=== PATIENT | female | born 1950 | race Caucasian/White ===

== ENCOUNTER 2016-08-14 21:30 | Inpatient (IN) | payer OTHER, MEDICAID ==
[~2016-08-14] VITALS: Ht 147.3 cm; Wt 82.4 kg
[~2016-08-14 21:30] MED LIST: CEPH500C PO; FAMO20TA4 PO; FUR80 PO; K20 PO; LACL30 PO; SPIR25TA17 PO
[2016-08-14 21:44] VITALS: BP 135/62; PULSE 103; RESP 18; O2SAT 100
[2016-08-14] MEDS ORDERED: 0.9% Sodium Chloride 1,000 ML IV ONE (22:07)
[2016-08-14] MEDS ORDERED: Ondansetron 2 mg/mL 2 mL Inj IVPUSH PRN (22:10)
[2016-08-14 22:15] LABS: Mean Corpuscular Hemoglobin 34.6 pg (27.0-35.0); Mean Corpuscular Volume 96.2 fL (81-100); Platelet Count 151 bil/L (150-400)
--- NOTE | 2016-08-14 22:20 | ED.REPORT ---
HPI-Abd Pain F 40 and Over Date of Service Aug 14, 2016 ED Provider: Adonay Diaz MD A 65 year old female with a history of alcoholism, cirrhosis with liver failure , hypertension, ascites, and hemorrhoids presents to the ED via EMS with diffuse lower abdominal pain onset one week ago. She also reports ascites, eye watering, rhinorrhea, cough, bleeding hemorrhoids, headache, and subjective fever as well as constipation and diarrhea which have now resolved. She denies nausea. The patient has not been compliant with her medication for a year. Her last alcoholic drink was four days ago. Nursing Notes Stated Complaint: ABDOMINAL PAIN Chief Complaint: Female Abdominal Pain Nursing Notes Reviewed: Yes Allergies: Coded Allergies: codeine (Verified Allergy, Intermediate, ITCHING, 08/14/16) [place] Tree (Unverified Allergy, Unknown, rash, 08/15/16) Tetracyclines (Verified Allergy, Unknown, 08/14/16) mussels (Unverified Allergy, Unknown, heart races, 08/15/16) Scheduled Cephalexin-Expunged Drug, Do Not Renew! (Cephalexin-Expunged Drug, Do Not Renew! ) 500 Mg Capsule 500 MG PO TID FAMOTIDINE-Expunged Drug, Do Not Renew! (Pepcid-Expunged Drug, Do Not Renew!) 20 Mg Tablet 20 MG PO DAILY Furosemide-Expunged Drug, Do Not Renew! (Furosemide-Expunged Drug, Do Not Renew! ) 80 Mg Tablet 40 MG PO BID 1/2 TAB IN AM, 1/2 TAB AT NOON Lactulose-Expunged Drug, Do Not Renew! (Cephalac-Expunged Drug, Do Not Renew!) 20 Gm/30 Ml Syrup 20 GM PO BID Potassium Chl-Expunged Drug, Do Not Renew! (T-XXK-Ajisaevu Drug, Do Not Renew!) 20 Meq Tabsr 40 MEQ PO DAILY TAKE WITH FOOD Spironolactone-Expunged Drug, Do Not Renew! (Spironolactone-Expunged Drug, Do Not Renew!) 25 Mg Tablet 50 MG PO DAILY General Time Seen by : 22:15 Chief Complaint Abdominal pain Hx Obtained From: Patient Arrived By: Ambulance Sudden in Onset?: No Onset Occurred: 1 week ago Symptom Duration: Since onset Location: : Abdomen lower Quality: Painful Severity: Current: Moderate Severity: Maximum: Moderate Associated with: Reports: Constipation, Diarrhea, Fever (Subjective ), Denies: Nausea, Vomiting Pertinent Negative: Relieved by nothing Context Related History: Reports: Abdominal surgery, Alcohol abuse Recent Healthcare: No recent doctor visit Similar Sx Previous: Yes Past Medical History Past Medical History Hx alcoholism Cirrhosis with liver failure Ascites Hypertensive gastropathy Hemorrhoids Past Surgical History Tubal ligation Tonsillectomy Smoking History Unknown if Ever Smoker Social History Drinks alcohol Ambulatory Status Independent Review of Systems + ascites, bleeding hemorrhoids Constitutional: Reports: Fever (Subjective) Respiratory: Reports: Non-productive cough GI: Reports: Abdominal pain, Constipation (Resolved), Diarrhea (Resolved), Denies: Nausea, Vomiting Complete sys rev & neg: except as marked. Eyes: Reports: Discharge bilateral (watering) Allergy / Immune: Reports: Rhinorrhea Neurologic: Reports: Headache Physical Exam Physical Exam Notes: Vital Signs Vital Signs (First) Date Time Temp Pulse Resp B/P Pulse Ox O2 Delivery O2 Flow Rate FiO2 08/14/16 21:44 36.8 103 18 135/62 100 Room Air Initial VS: Reviewed, Vital signs abnormal Neck: Supple, Full range of motion Neurologic: Alert, Oriented, Nonfocal Psychiatric: Mood/affect normal, Behavior normal, Normal thought content General/Constitutional: Awake, Alert Respiratory / Chest: Breath sounds NL, Breath sounds = bilat, No respiratory distress Cardiovascular: Heart rate NL, Regular rhythm, Heart sounds NL Tenderness/Guarding/Rebound: Positive: Tender diffuse, Tender periumbilical ( Worst) Liver tender Head / Eyes: Atraumatic, Normocephalic Conjunctiva / Sclera: Positive: Icteric Skin: Warm, Dry Color / Condition: Positive: Jaundice present Interpretation & Diagnostics Lab Results Interpretation Result Diagram: 08/14/16220508/14/162205 Test 08/14/16 22:06 08/14/16 22:11 White Blood Count 12.7th/mm3 (3.8-10.1) Red Blood Count 3.64mil/mm3 (3.90-5.20) Hemoglobin 12.6g/dL (12.0-15.6) Hematocrit 35.0% (35.0-46.0) Mean Corpuscular Volume 96.2fL (81-100) Mean Corpuscular Hemoglobin 34.6pg (27.0-35.0) Mean Corpuscular Hemoglobin Concent 36.0% (32.0-37.0) Red Cell Distribution Width 15.5% (12.3-15.4) Platelet Count 151bil/L (150-400) Neutrophils (%) (Auto) 68% (40-74) Lymphocytes (%) (Auto) 20% (14-46) Monocytes (%) (Auto) 8% (4-12) Eosinophils (%) (Auto) 1% (0-5) Basophils (%) (Auto) 0% (0-3) Band Neutrophils % 2% (1-5) Metamyelocytes % 1% (0-0) Myelocytes % 1% (0-0) Nucleated Red Blood Cells 1/100 WBC (0-24) Hold Purple Top Tube Received (Received) Hold Blue Top Tube Received (Received) Sodium Level 128mEq/L (134-144) Potassium Level 4.2mEq/L (3.5-5.2) Chloride Level 83mEq/L (97-108) Carbon Dioxide Level 18mmol/L (18-29) Blood Urea Nitrogen 19mg/dL (8-27) Creatinine 0.89mg/dL (0.57-1.00) Estimat Glomerular Filtration Rate 92mL/min (>59) Glucose Level 87mg/dL (60-99) Calcium Level 10.4mg/dL (8.5-10.1) Magnesium Level 1.5mg/dL (1.6-2.6) Total Bilirubin 10.6mg/dL (0.0-1.2) Aspartate Amino Transf (AST/SGOT) 246U/L (0-50) Alanine Aminotransferase (ALT/SGPT) 176U/L (0-32) Alkaline Phosphatase 242U/L (25-165) Ammonia 159ug/dL (18-53) Total Protein 6.8g/dL (6.4-8.4) Albumin 3.3g/dL (3.4-5.0) Lipase 20U/L (13-60) Hold [place] Top Tube Received (Received) Hold Mack Top Tube Received (Received) Alcohol, Quantitative < 10mg/dL (0-10) Prothrombin Time 16.3sec (8.1-12.5) Prothromb Time International Ratio 1.51ratio Lab Results Interpretation: Elevated white blood count, hyponatremia, elevated bilirubin, elevated transaminases, hype hypomagnesemia, elevated ammonia CT Abd / Pelvis Interpretation CONCLUSION: Marked fatty infiltration of the liver. TIPS. Gallstones. 5.5 cm left ovarian cyst. Nonemergent ultrasound is recommended to exclude malignant features Transmitted to ED by Guero Sherwood M.D. at 08/15/2016 AM PST Study type: Abdominal CT IV contrast Interpretation / Wet Read by: Interpret - Radiologist Re-Eval/Medical Decision Med Decision/Clinical Course 65-year-old female with a history of liver failure presents with increasing abdominal pain. There is no definitive cause found. She has multiple lab abnormalities including hyperammonemia. She will be admitted to the hospitalist service for further evaluation and treatment. Source of Hx: Old records Re-Evaluation/Progress : Time of Eval: 00:21 Patient Status: Condition improved Re-Evaluation/Progress Note: Discussed with patient CT and lab results, diagnosis, and plan for admit. Patient agrees with plan for care and all questions were addressed. Consultation #1: Referral / Consult Name: Danie Bagley MD Consulted With: Hospitalist Call Returned at: 00:41 Associate Software Engineer: Will see patient, Agrees with eval, Agrees with plan Note: Will evaluate patient for admission Consultation #2: Referral / Consult Name: Danie Bagley MD Consulted With: Hospitalist Call Returned at: 01:00 Associate Software Engineer: Agrees with eval, Agrees with plan, Accepts admit Counseled Regarding: Diagnosis, Lab results, Need for admission Discharge & Departure Primary Impression: Abdominal pain Abdominal location: generalized Qualified Code: R10.84 - Generalized abdominal pain Additional Impressions: S/P TIPS (transjugular intrahepatic portosystemic shunt) Liver failure Liver failure chronicity: chronic Hepatic coma status: without hepatic coma Qualified Code: K72.10 - Chronic hepatic failure without coma Disposition: ADMITTED TO HOSPITAL Discharge Condition All VS Reviewed: Yes Condition: Stable Referrals: Nita Sawyer MD (PCP) Lucasibestela Attestation Portions of this note were transcribed by Sonal Castañeda. I, Dr. Diaz, personally performed the history, physical exam, and medical decision-making; I reviewed and confirmed the accuracy of the information in the transcribed note. Signed by: Gabriela Alonso, 08/15/2016, 02:27 copies to: Nita Sawyer MD, Howard L MD Aug 14, 2016 22:20 SONAL CASTAÑEDA Aug 14, 2016 22:24
[2016-08-14 22:30] LABS: INR 1.51 ratio
[2016-08-14 22:33] LABS: BASOPHILS % (AUTO) 0 % (0-3); EOSINOPHILS % (AUTO) 1 % (0-5); MONOCYTES % (AUTO) 8 % (4-12); NEUTROPHILS % (AUTO) 68 % (40-74)
[2016-08-14 22:43] LABS: Magnesium 1.5 mg/dL (1.6-2.6)
[2016-08-14] MEDS ORDERED: Magnesium Sulf 2 Gm/50mL Water 2 GM in IV Premix 1 EACH IV ONE (22:50)
[2016-08-14] MEDS ORDERED: Lactulose 10 Gm/15 mL 473 mL Solution PO ONE (22:50)
[2016-08-14] MEDS ORDERED: Lactulose 20 Gm/30 mL 30 mL Syrup PO ONE (23:05)
[2016-08-15 01:27] VITALS: BP 102/49; PULSE 95; RESP 16; O2SAT 97
[2016-08-15] MEDS ORDERED: Alum-Mag Hydrox-Simeth 30 mL Suspension PO PRN (02:00)
[2016-08-15] MEDS ORDERED: Polyethylene Glycol (PEG) 17 Gm Powder PO PRN (02:00)
[2016-08-15] MEDS ORDERED: Ondansetron 2 mg/mL 2 mL Inj IVPUSH PRN (02:00)
[2016-08-15 02:28] VITALS: BP 96/61; PULSE 92; RESP 18; O2SAT 99
--- NOTE | 2016-08-15 03:46 | PCM.HPMED ---
Subjective Date of Service Aug 15, 2016 Primary Provider: Admitting Physician: Danie Bagley MD Primary Care Physician: Nita Sawyer MD Attending Physician: Danie Bagley MD Chief Complaint: Abdominal pain History of Present Illness: Patient is a 65-year-old female with alcoholic induced liver cirrhosis s/p TIPS , hepatic encephalopathy and hypertension presenting with abdominal pain. Patient reports the onset of lower abdominal pain about one week ago. She describes the pain as an intermittent sharp pain that started without any inciting event. She states the pain is worse when sitting upright and has tried ibuprofen without any improvement. Patient states the pain was worse today, which prompted her to summon EMS to be brought to [facility] ED for further evaluation. The patient also endorses daily nausea and emesis in the morning over about the past month. She also reports a dry cough over the same time period. Patient reports being constipated earlier in the week with subsequent diarrhea over the past two days. She also reports bleeding hemorrhoids with reported hematochezia about 2 days ago, which has since resolved. She also reports watery eyes with resulting crusting in the morning. This has been bothering her and is another reason she decided to come to the ED. She had been followed by engagement director, Dr. Mack, in the past and was on furosemide, spironolactone and lactulose for her liver-related issues; however, she reports that she has not been compliant with her medications over about the past six months. She states she is unable to follow up with a agent or engagement director since transportation is an issue. She admits to drinking 3 to 4 vodka shots per week. Her last alcoholic drink was about four days ago. Patient denies history of DTs or hallucinations with alcohol cessation. In the ED, vitals: 36.8, HR 103, RR 18 satting 100% on room air, BP 135/62. Notable labs: Na 128, Cl 83, AST 246, ALT 176, alk phos 292, T bili 10.6, ammonia 159. CT abdomen and pelvis reads marked fatty infiltration of the liver , gallstones and 5.5cm left ovarian cyst. Review of Systems: A comprehensive review of systems was conducted with the patient and found to be negative except as above in the History of Present Illness. Allergies Coded Allergies: codeine (Verified Allergy, Intermediate, ITCHING, 08/14/16) [place] Tree (Unverified Allergy, Unknown, rash, 08/15/16) Tetracyclines (Verified Allergy, Unknown, 08/14/16) mussels (Unverified Allergy, Unknown, heart races, 08/15/16) Home Medications None reported PMH Alcoholic induced liver cirrhosis with ascites s/p TIPS Hepatic encephalopathy Hypertension Alcohol dependence Hemorrhoids . Surgical History Tubal ligation TIPS Family History Mother in her 60s from breast cancer, lung cancer Father in his 70s from bladder cancer, prostate cancer Social History Occupation: Disabled Hx Alcohol Use: Yes (current) Hx Substance Use: No Hx Tobacco Use: Yes (Currently 5 cigarettes daily (In the past up to 1 PPD x 40 years)) Smoking Status: Current Every Day Smoker Living Arrangement: Alone Exam Vital Signs Vital Sign - Last Date Time Temp Pulse Resp B/P Pulse Ox O2 Delivery O2 Flow Rate FiO2 08/15/16 01:27 36.7 95 16 102/49 97 Room Air Intake and Output 08/14/16 08/14/16 08/15/16 Cumulative From/Thru 15:00 23:00 07:00 08/14/16 21:44 - 08/15/16 00:54 Intake Total 1000 ml 1000 ml Balance 1000 ml 1000 ml Intake IV Total 1000 ml 1000 ml Exam General: Patient supine in bed. No acute distress, well-developed, well- nourished, appropriately interactive HEENT: Normocephalic, atraumatic. External ears without defect. Pupils equal, round, and reactive to light and accommodation. Scleral icterus. Oropharynx free of erythema with moist mucosa. No upper teeth. Neck: Supple. No lymphadenopathy or thyromegaly. Cardiovascular: Regular rate and rhythm with no murmurs, rubs, or gallops appreciated Pulmonary: Clear to auscultation bilaterally with no crackles, wheezes, or rhonchi. Normal respiratory effort with no use of accessory muscles. Abdomen: Mild tenderness to palpation inferior to umbilicus. Bowel tones present. Soft, obese, nondistended. Hepatosplenomegaly. Extremities: No clubbing, cyanosis, edema, or lymphadenopathy appreciated. Skin: Telangiectasias on chest and arms. Normal temperature, turgor, and texture ; no rash, ulcers, or subcutaneous nodules appreciated. Neurological: Cranial nerves grossly intact. Psychiatric: Normal mood and affect. Alert and oriented to person, place, and time. Lab and Diagnostics Result Diagram: 08/14/16220508/14/162205 X-Rays, CTs and MRIs CT abdomen and pelvis Exam date: 08/14/2016 Conclusion: Marked fatty infiltration of the liver. TIPS. Gallstones. 5.5 cm left ovarian cyst. Nonemergent ultrasound is recommended to exclude malignant features. Radiologist: Guero Sherwood MD Assessment & Plan Patient is a 65-year-old female with alcoholic induced liver cirrhosis s/p TIPS , hepatic encephalopathy and hypertension admitted for abdominal pain, hyperammonemia, hyponatremia, hyperbilirubinemia and transaminitis. 1. Acute abdominal pain. Present on admission. Active -CT abdomen/pelvis shows marked fatty infiltration of the liver, gallstones, 5.5cm left ovarian cyst, small fat-containing umbilical hernia -Mild tenderness on exam; no tense ascites 2. Alcoholic induced liver cirrhosis s/p TIPS. Present on admission. Active -MELD 26 = 19.6%; Discriminant function score 39. Consider pentoxifylline or steroids barring active infection -Patient has been non-compliant with medications. Formerly on spironolactone, Lasix and lactulose -Jaundice on examination but otherwise compensated without ascites or encephalopathy 3. Hyperammonemia. Unknown acuity. Present on admission. Active -Ammonia 159 -Patient is currently not confused or altered on exam -Prophylaxis with lactulose 4. Transaminitis and elevated alkaline phosphatase. Unknown acuity. Present on admission. Active -AST 246, ALT 176, alk phos 242 -Possibly progression of alcoholic liver disease -Consider acute hepatitis panel -Follow with CMP 5. Hyperbilirubinemia. Unknown acuity. Present on admission -Total bilirubin 10.6 -Possible progression of liver disease or sequela of TIPS -Direct and indirect bilirubin levels pending 6. Acute on chronic hematochezia . Present on admission. Active -In setting of patient with hemorrhoids -Per RN, blood with bowel movement following admit -Possibly from hemorrhoids or varices -Will hold heparin -Hemoglobin 12.6 on admit. Follow hemoglobin and hematocrit 7. Hyponatremia. Unknown acuity. Present on admission. Active -Na 128 -Liver cirrhosis that is fairly compensated - no ascites or encephalopathy -Possibly from volume depletion secondary to current nausea, vomiting and diarrhea -Patient received 1L NS in ED -CMP in AM 8. Mild hypercalcemia. Unknown acuity. Present on admission. Active -Ca 10.4 -Possibly secondary to dehydration from nausea, vomiting and diarrhea -CMP in AM 9. Acute on chronic cough. Present on admission. Active -Lung exam unremarkable -Respiratory virus PCR 10. Intertrigo, chronic. Present on admission. Active -Nystatin powder 11. Alcohol dependence, chronic. Present on admission. Active -Patient continues to consume vodka despite cirrhosis. Discussed alcohol cessation with patient -Currently no signs of withdrawal. Monitor for withdrawal -Consider social work referral Patient Status: Patient is admitted under inpatient status with expected length of stay greater than 2 midnights due to severity of presenting symptoms, risk of adverse event, and complexity of treatment plan. GI Prophylaxis: Not indicated VTE Prophylaxis: Sub-Q Heparin (Unfractionated) Resuscitation Status: CPR: Attempt Resuscitation Attending Statement Patient seen and examined independently, Plan and history discussed and formulated with resident. Agree with the above history and plan. Hubert Storm DO Aug 15, 2016 02:48 Danie Bagley MD Aug 15, 2016 07:14
--- NOTE | 2016-08-15 04:19 | NUR ---
[place] [facility] [place] Patient arrived to room 3023 at 0230. Alert and orientedx4 able to make needs known. denies pain. c/o mild cough. IV SL. RA. admission questions completed. patient has no home medications. bed alarm on for safety, patient reports she has fallen at home. will continue to monitor.
[2016-08-15 04:43] LABS: COLOR,URINE ORANGE (YELLOW)
[2016-08-15 04:44] LABS: APPEARANCE,URINE CLOUDY (CLEAR,HAZY); ICTOTEST,URINE POSITIVE (Negative); OCCULT BLOOD,URINE MODERATE (NEGATIVE)
[2016-08-15 05:04] VITALS: BP 106/67; PULSE 93; RESP 18; O2SAT 98
[2016-08-15 06:50] LABS: Mean Corpuscular Hemoglobin 34.7 pg (27.0-35.0); Mean Corpuscular Volume 95.5 fL (81-100); Platelet Count 135 bil/L (150-400)
[2016-08-15 07:22] LABS: Bilirubin, Direct 7.2 mg/dL (0.0-0.3)
[2016-08-15 08:33] LABS: BASOPHILS % (AUTO) 0 % (0-3); EOSINOPHILS % (AUTO) 2 % (0-5); MONOCYTES % (AUTO) 15 % (4-12); NEUTROPHILS % (AUTO) 60 % (40-74)
[2016-08-15] MEDS: Lactulose 20 Gm/30 mL 30 mL Syrup PO SCH ×3 (08:38→20:30)
[2016-08-15] MEDS: Nystatin 100,000 Unit/Gm 15 Gm Powder TOPICAL SCH ×2 (08:39→20:58)
[2016-08-15] MEDS: Heparin 5,000 Unit/mL Inj SUBQ SCH ×2 (08:39→17:03)
--- NOTE | 2016-08-15 08:56 | NUR ---
Social Work: Screening Data: Pt is a 65 y/o female admitted for abdominal pain, liver failure. Pt's PCP is Dr Sawyer, pt's insurance is [facility] [place] blind/disabled, [facility] medicaid sup. Pt readmit score is not listed. EMR reviewed, no d/c planning needs anticipated at this time. PRESSROOM WORKER will continue to follow if needs arise. Assessment: Pt who is independent at baseline. Plan: Pt will d/c home via POV when medically stable. No d/c planning needs anticipated at this time. PRESSROOM WORKER will continue to follow if needs arise. LAILA Melgar
--- NOTE | 2016-08-15 08:59 | DRSVH ---
PROCEDURE: CT ABDOMEN AND PELVIS WITH CONTRAST ([id number]) INDICATIONS: abdominal pain, liver failure TECHNIQUE: After the administration of intravenous contrast, 5 mm thick sections acquired from the diaphragm to the symphysis. 5 mm coronal and sagittal reformats were acquired. For radiation dose reduction, the following was used: automated exposure control, adjustment of mA and/or kV according to patient siz e. COMPARISON: None. FINDINGS: Image quality: Excellent. ABDOMEN: Lung bases: Lung bases are clear. Heart size is normal. Solid organs: Diffuse fatty infiltration the liver is noted. Patient is status post TIPS. Liver has s lightly nodular contour suggesting hepatic cirrhosis; please correlate with clinical and laboratory d arthur. Spleen is within normal limits. Gallbladder contains numerous gallstones. Biliary system is no n dilated. Pancreas enhances normally. No adrenal nodules. Kidneys demonstrate normal size and enh ancement, without hydronephrosis. Peritoneum and bowel: Bowel loops demonstrate normal wall thickness and caliber. No free fluid or a ir. The appendix is normal. Nodes and vessels: No retroperitoneal or mesenteric adenopathy by size criteria. Aorta and inferior vena cava are normal in size. Scattered atherosclerotic calcifications are noted in the abdominal pe lvic vasculature. Miscellaneous: Small fat-containing umbilical hernia. PELVIS: Genitourinary: Bladder wall thickness is normal. Gas is noted in the urinary bladder which could be related to recent catheterization, infection with gas-forming organism or fistulous connection with t he bowel. t A 5.5 x 6.0 cm left adnexal cyst is noted. Miscellaneous: No inguinal hernias or adenopathy. Bones: No suspicious bony lesions. No vertebral body compression fractures. IMPRESSION: 1. Hepatic steatosis. Liver has nodular contour suggestive of hepatic cirrhosis. Please correlate wit h clinical laboratory data. 2. Status post TIPS. 3. Cholelithiasis. 4. 6.0 x 5.5 cm left adnexal cyst. Recommend gynecologic consultation and pelvic ultrasound for furth er evaluation. 5. Gas in the urinary bladder. Differential diagnosis includes recent catheterization, infection and fistulous connection to bowel. Please correlate with clinical history and urinalysis data. Final [facility]. Dictated by: Venecia Lenz MD, PhD on 08/15/2016 at 8:56 Approved by: Venecia Lenz MD, PhD on 08/15/2016 at 8:56
[2016-08-15] MEDS ORDERED: Potassium Chloride 20 mEq SR Tablet PO ONE (14:05)
[2016-08-15 14:21] VITALS: BP 96/64; PULSE 94; RESP 18; O2SAT 98
--- NOTE | 2016-08-15 15:39 | DRSVH ---
PROCEDURE: US ABDOMEN, LIMITED ([id number]) INDICATIONS: abd pain, gallstones on CT TECHNIQUE: Real-time focused scanning was performed of the abdomen, with image documentation. COMPARISON: [facility], CT, CT ABD PELVIS W CON, 08/14/2016, 23:26. [facility], US, ABDOMEN SONOGRAM LIMITED, 12/05/2012, 11:56. FINDINGS: The liver demonstrates steatosis as well but overall cirrhotic appearance. The gallbladder demonstrates mild wall thickening as well as multiple nonmobile areas of increased echogenicity. Comm on bile duct is well common hepatic duct are not well-visualized secondary to patient body habitus. IMPRESSION: 1. Nonmobile areas of increased echogenicity within the gallbladder as well as color wall thickening. Findings are suspicious for adherent stones or sludge with likely superimposed cholecystitis. Dictated by: Sherine Biswas M.D. on 08/15/2016 at 15:36 Approved by: Sherine Biswas M.D. on 08/15/2016 at 15:36
--- NOTE | 2016-08-15 18:28 | NUR ---
Abdominal pain: Patient was given PRN pain med x1 this morning with good relief of patients pain for the entire day and helped her rest most of the day.. Patients abdominal CT was positive for gall stones . Patient is to be NPO after midnight for possible gall bladder surgery in the morning.
--- NOTE | 2016-08-15 18:37 | NUR ---
Chemical Dependency Assessment Stan Valdes 08/17/2016 Current Circumstances: Pt is a 65 year old female who was admitted inpatient status for cirrhosis of the liver and abdominal pain. Pt reported that she drinks ETOH several times a week and a CD assessment was requested. Hx of Use: Pt reported that she has a history of ETOH with a relapse about one year ago. Pt reported that she consumes about four cocktails a week. Pt explained that her friend will come and visit her several times a week and they will make drinks when they hang out. Hx of Treatment: Pt reported that she enrolled in outpatient CD treatment with [facility] about 4.5. Pt reported no other treatment programs. Hx of Withdrawal Symptoms:Pt reported that she usually feels very thirsty when she is experiencing withdrawal. Pt denied any history of seizures, nausea or vomiting. Pt reported no history of DT. Family Hx: Pt reported a family history of substance use on both sides of her family. Hx os sobriety and supports: Pt reported that she enrolled in outpatient CD treatment about 4.5 years ago and was able to remain sober for 3.5 years after she completed the program. Pt reported that she has several friends who would be supportive of any efforts she would make to become sober again. Pt's Perception of Use: Pt indicated that she intended to stop drinking if that was what had caused her current medical issues. Suicide Risk Assessment: Pt reported no SI, HI or A/V H. Recommendations for Referral: Pt declined a list of local outpatient resources. Pt was already enrolled with [facility] and reported that she would re-enroll if needed once she discharged. Natacha Vaughn, CARPET SEWING MACHINE OPERATOR, AAC
[2016-08-15 20:21] VITALS: BP 97/63; PULSE 88; RESP 18; O2SAT 96
--- NOTE | 2016-08-15 21:14 | CONS ---
[address] [address] CONSULTATION REPORT PATIENT: JANE NOLAND : 1950 MR#: [id number] ADMIT: 08/15/2016 JOB ID: [id number] DATE OF SERVICE: 08/15/2016 CHIEF COMPLAINT/IDENTIFICATION: I have been asked by the Medicine Service to consult on this woman regarding a question of cholecystitis. HISTORY OF PRESENT ILLNESS: I was called at 6 this evening with the thought that the patient might have acute cholecystitis. She was admitted to the hospital last night with complaints of abdominal pain that began roughly four days ago. This pain began after she had been drinking alcohol heavily, is not made worse by eating, though she is a bit anorexic. She has had some emesis and it was bloody and coffee-ground. She does have a history of alcoholic cirrhosis and is status post a TIPS procedure for intractable ascites roughly four years ago, according to the patient. She states she has no known history of pancreatitis. She was initially admitted with the diagnosis of acute abdominal pain and after an ultrasound today was felt to have acute cholecystitis. She has not received antibiotics this hospitalization. On questioning, she localizes her pain to the midline, denies radiation to the shoulders. She has not had a recent colonoscopy or EGD. PAST MEDICAL HISTORY: As above. The patient has had a previous history of hepatic encephalopathy, hypertension, hemorrhoids and status post tubal ligation, status post TIPS. She previously was on furosemide, spironolactone and lactulose but has stopped following up with GI and has stopped taking any medications. HOME MEDICATIONS: None. ALLERGIES: 1. CODEINE. 2. TETRACYCLINE. 3. SHELLFISH. SOCIAL HISTORY: Smoker, drinker, lives alone. FAMILY HISTORY: Noncontributory. REVIEW OF SYSTEMS: Per admission history and physical. PHYSICAL EXAMINATION: The patient is seen as she is coming from the bathroom having diarrhea secondary to her lactulose. She is afebrile. Her pulse is in the 80s and 90s. Her blood pressure is mildly low at 97/63. Room air saturation is 96%. Her general appearance is consistent with advanced liver disease with muscle wasting, nondilated caput medusa on her abdomen, though she has no liver flap to my examination. Her abdomen is full to the touch, and I believe that I can palpate a relatively firm liver, but she does not have right upper quadrant tenderness and she does not have a Magallon sign. LABORATORY DATA: Her admission white count was 12.7 and this morning it was 11.7. Hematocrit is 35. Platelet count is 135. She does have a bit of a left shift with 3 bands and 2 myelocytes. Chemistries show her to be hyponatremic with a sodium of 126, hypokalemic with a potassium of 3.4, normal BUN and creatinine. Her LFTs are markedly abnormal with admission bilirubin being 10.6 and having dropped down to 9.2 this morning with the bulk of that being direct bilirubin at 7.2. Transaminases are elevated at 222 and 151 though we do not have a baseline, her alkaline phosphatase is 224, her admission lipase is 20, albumin is 2.7, her INR is 1.51. IMAGING: She has had abdominal CT scan and abdominal ultrasound. I reviewed both the images and the reports and what these demonstrate are nodular liver, status post TIPS, gallstones and a left adnexal cyst. Her ultrasound demonstrates some wall thickening and some stones or sludge in her gallbladder though her gallbladder is not particularly dilated or distended. IMPRESSION AND PLAN: A 65-year-old woman with baseline severe liver disease who is not compliant with followup who has been drinking who developed abdominal pain after drinking. Although she does have gallstones, I am inclined to feel that it is more likely that her abdominal pain is due to some acute alcoholic hepatitis and/or alcoholic gastritis rather than her gallstones. Unfortunately, due to her elevated bilirubin, a HIDA scan would be nondiagnostic and therefore we just have top decide on clinical grounds whether or not this is cholecystitis. As I said, I think she does not have cholecystitis. However, if one wanted to treat her for cholecystitis, given her overall status, I would not want to castaneda her off to the operating room for cholecystectomy. Instead, I would attempt to treat her with antibiotics for cholecystitis and if it did seem that she needed some sort of mechanical intervention, I would consider a cholecystostomy tube. However, as stated, I would not go with a cholecystostomy tube or a lap renetta at this point, and I am not even inclined to recommend treating her with antibiotics. Instead, I would follow her and see if this acute illness resolves with the current treatment. The only compelling reason to treat her with antibiotics is that she is relatively immune-suppressed and she does have a left shift on her mildly elevated white count. General Surgery will continue to follow this patient while she is in the hospital.
[2016-08-16] MEDS: Heparin 5,000 Unit/mL Inj SUBQ SCH ×3 (00:30→16:30)
[2016-08-16 02:09] LABS: Hepatitis A Antibody IgM Negative (Negative); Hepatitis B Core Antibody IgM Negative (Negative)
[2016-08-16 04:45] VITALS: BP 103/58; PULSE 83; RESP 18; O2SAT 97
[2016-08-16 06:48] LABS: Mean Corpuscular Hemoglobin 34.5 pg (27.0-35.0); Mean Corpuscular Volume 94.4 fL (81-100); Platelet Count 131 bil/L (150-400)
[2016-08-16] MEDS ORDERED: SPIR50TA2 PO (07:57)
[2016-08-16] MEDS ORDERED: FURO40TA4 PO (07:58)
[2016-08-16] MEDS ORDERED: FAMO20TA4 PO (07:58)
[2016-08-16 08:11] LABS: BASOPHILS % (AUTO) 1 % (0-3); EOSINOPHILS % (AUTO) 2 % (0-5); MONOCYTES % (AUTO) 16 % (4-12); NEUTROPHILS % (AUTO) 60 % (40-74)
[2016-08-16] MEDS: Lactulose 20 Gm/30 mL 30 mL Syrup PO SCH ×3 (09:34→21:30)
[2016-08-16] MEDS: Nystatin 100,000 Unit/Gm 15 Gm Powder TOPICAL SCH ×2 (09:35→21:35)
--- NOTE | 2016-08-16 10:11 | PCM.PNSURG ---
Subjective Date of Service: Aug 16, 2016 Visit Information: Reason for Visit Abdominal Pain,Liver Failure Surgery/Surgery Date Post-Op Day # Date of Admission: Aug 15, 2016 at 01:09 Hospital Day #2 Subjective: No complaints of pain. Complains of mild nausea but has an appetite and would like to eat. Ate a lunch and breakfast yesterday with no nausea or vomiting. Passing flatus but has not had a bowel movement today. Thinks she may have had a bowel movement yesterday. Ambulatory in the room. Postop General: Other (as above) Gastrointestinal: Good Appetite, Tolerating Oral Feedings, Passing Flatus, Complains of Nausea (minimal) Pain Management: No or Minimal Pain Postop Activity: Ambulating in Room Only Objective Vital Sign- Last 8 Hours Date Time Temp Pulse Resp B/P Pulse Ox O2 Delivery O2 Flow Rate FiO2 08/16/16 04:45 36.4 83 18 103/58 97 Room Air Intake and Output- Last 8 Hour 08/16/16 Cumulative From/Thru 07:00 08/14/16 21:44 - 08/16/16 06:57 Intake Total 400 ml 2700 ml Output Total 650 ml 1300 ml Balance -250 ml 1400 ml Intake Oral 400 ml 1700 ml IV Total 1000 ml Output Urine Total 650 ml 1300 ml # Bowel Movements 4 General: Alert, Cooperative, No Acute Distress, Anicteric Lungs: Clear to Auscultation Heart: Regular Rate/Rhythm Abdomen: Soft, Non-tender (to deep palpation of the right costal margin and mid epigastrium), Non-distended, Protuberant Extremities: Thigh&Calf Soft/Nontender Neuro: Normal Speech Catheters: None Result Diagram: 08/16/16 0610 08/16/16 0610 Assessment & Plan Impression Primary diagnosis: Suspected liver failure, acute on chronic or alcoholic hepatitis. I do not believe this patient has cholecystitis despite presence of cholelithiasis. Other diagnoses: 1. Alcoholic induced liver cirrhosis with ascites s/p TIPS 2. Hepatic encephalopathy 3. Hypertension 4. Alcohol dependence 5. Hemorrhoids 6. Daily cigarette smoker Problems: Plan 1. No surgical intervention is indicated at this time. 2. Surgery will continue to follow. VTE Prophylaxis: Sub-Q Heparin (Unfractionated) Resuscitation Status: CPR: Attempt Resuscitation copies to: Nita Sawyer MD, Fred H PA-C Aug 16, 2016 10:11
[2016-08-16 12:45] VITALS: BP 104/57; PULSE 89; RESP 20; O2SAT 96
--- NOTE | 2016-08-16 13:33 | CONS ---
[address] [address] CONSULTATION REPORT PATIENT: JANE NOLAND : 1950 MR#: [id number] ADMIT: 08/15/2016 JOB ID: [id number] DATE OF SERVICE: 08/16/2016 GASTROENTEROLOGY CONSULTATION: REASON FOR CONSULTATION: Rectal bleeding, alcoholic cirrhosis, and abdominal pain. HISTORY OF PRESENT ILLNESS: A 65-year-old female with history of alcoholic cirrhosis proven by imaging, status post TIPS procedure at the [facility] 4-1/2 years ago, complicated by hepatic encephalopathy, history of hypertension, history of hemorrhoids, who presents for consultation for abdominal pain, rectal bleeding, and cirrhosis. The patient states that her history begins in which she used to drink one pint of vodka per day for the past seven years. Currently for the past one year the patient drinks four shots of vodka per day in which her last use was August 10. The patient complains of epigastric pain or periumbilical pain for the past seven days, 5/10, sharp, nonradiating, intermittent, unknown triggers, and no change with food. The patient also complains of rectal bleeding for the past five days, one time per day, and when she wipes herself with tissue there is bright red blood. The patient denies melena, nausea, vomiting, hematemesis, change in bowel habits, or unintentional weight loss. The patient never had an EGD or colonoscopy in the past and denies family history of colon cancer, inflammatory bowel disease, or celiac disease. The patient has a history of noncompliance with her medications as an outpatient. The patient presents for further evaluation. PAST MEDICAL HISTORY: As stated above. PAST SURGICAL HISTORY: As stated above including the TIPS procedure and tubal ligation. ALLERGIES: CODEINE, , , TETRACYCLINE, AND MUSSELS. HOME MEDICATIONS: None. SOCIAL HISTORY: Heavy history of alcohol use in which she used to drink four shots of vodka per day for the past one year, last use August 10, and prior to that the patient had one pint of vodka per day for seven years. History of five cigarettes per day; used to be one pack per day for 40 years. She is disabled. No history of IV drug use. FAMILY HISTORY: Negative for colon cancer, inflammatory bowel disease, or celiac disease. REVIEW OF SYSTEMS: The patient denies headache, blurred vision, nausea, vomiting, chest pain, shortness of breath. Positive abdominal pain. No skin rash or joint pain. PHYSICAL EXAMINATION: Vital signs upon presentation: Temperature is 36.4, pulse 83, respiratory rate of 18, blood pressure 103/58, satting 97% on room air. General: In no acute distress. Head: No scars. Eyes: Positive bilateral scleral icterus. Throat: Supple. Lungs: Clear to auscultation bilaterally. Cardiovascular: Regular rhythm and rate. Abdomen: Soft, nondistended. Positive right upper quadrant pain and periumbilical pain upon palpation. Normoactive bowel sounds. Extremities: No cyanosis, clubbing, or edema. LABORATORY: Shows a white count 13.1, hemoglobin 11.1, hematocrit 30, MCV 94, platelet count 131. Sodium 123, potassium 4.0, chloride 85, bicarb 20, BUN 17, creatinine 1.0, glucose 60, calcium 9.6. Total bilirubin currently is 8.8, AST 228, ALT 152, alk phos 262, ammonia 159. Total protein 5.4, albumin 2.7. Lipase was normal at 20. IMAGING STUDIES: CT of the abdomen and pelvis with contrast performed August 14, 2016, which shows hepatic steatosis, a nodular liver consistent with hepatic cirrhosis, status post TIPS procedure, gallstones, a 6 x 5.5 cm left adnexal cyst, and gas in the urinary bladder. Abdominal ultrasound performed August 15, 2016, shows areas of increased echogenicity within the gallbladder as well as color wall thickening suspicious for adherent stones or sludge, with likely cecal volvulus cholecystitis. ASSESSMENT AND PLAN: This is a 65-year-old female with history of alcoholic cirrhosis, MELD score upon admission was 20, status post TIPS procedure 4-1/2 years ago at [facility] complicated by hepatic encephalopathy, currently having only one bowel movement per day and not taking lactulose or Xifaxan as an outpatient, history of hypertension, alcohol abuse in which she drinks one pint of vodka per day for the past seven years but currently drinks four shots of vodka per day for the past one year and last drank August 10, who presents here for rectal bleeding, abdominal pain, and management of her cirrhosis. The patient should be started on lactulose and Xifaxan 550 mg by mouth twice a day for her history of encephalopathy. In regards to her rectal bleeding, this mostly sounds like hemorrhoids, but the patient will need an EGD and colonoscopy given her abdominal pain to rule out peptic ulcer disease along with her rectal bleeding. The patient's continued alcohol use is concerning given the fact that now her liver enzymes are elevated most likely due to acute alcoholic hepatitis given the fact that her AST/ALT ratio is 2:1. The patient's Maddrey discriminant function score upon admission was 28, therefore no steroids is indicated. The patient should undergo a substance abuse rehabilitation alcohol program as an outpatient. The patient, in regards to her abdominal pain, it could be peptic ulcer disease from her alcohol use along with possible from her ultrasound showing gallstones, along with or perhaps superimposed acute cholecystitis. I agree with general surgery that the patient should most likely be treated with antibiotics and hold off on anything invasive from a surgical standpoint, especially in the light of her history of cirrhosis due to alcohol. RECOMMENDATIONS: 1. EGD and colonoscopy with anesthesia for her abdominal pain and rectal bleeding. 2. Please start Lactulose and Xifaxan 550 mg by mouth twice a day for her history of encephalopathy- titrate to 3bm/day 3. Alcohol cessation. 4. The patient should be on a multivitamin and folate. 5. Recommendations per General Surgery. 6. Outpatient alcoholic rehabilitation program. The patient is not a liver transplant candidate given her continued use of alcohol. MTDD
[2016-08-16] MEDS ORDERED: PEG/Electrolytes 4,000 mL Solution PO ONE (16:00)
[2016-08-16] MEDS: CeFAZolin Inj 2 GM in IV Premix 1 EACH IV SCH (17:32)
--- NOTE | 2016-08-16 19:29 | PCM.PNMED ---
Subjective Date of Service Aug 16, 2016 Subjective Patient is still c/o abdominal pain, mostly in her right upper quadrant. She has occasional diarrhea, but no vomiting. She states she has one bowel movement yesterday but she does not remember if there was blood in her stool. She tolerates oral intake well. Exam Vital Signs Vital Sign - Last Date Time Temp Pulse Resp B/P Pulse Ox O2 Delivery O2 Flow Rate FiO2 08/16/16 12:45 36.9 89 20 104/57 96 Room Air Intake and Output 08/15/16 08/15/16 08/16/16 Cumulative From/Thru 15:00 23:00 07:00 08/14/16 21:44 - 08/16/16 06:57 Intake Total 900 ml 400 ml 2700 ml Output Total 650 ml 650 ml 1300 ml Balance 250 ml -250 ml 1400 ml Intake Oral 900 ml 400 ml 1700 ml IV Total 1000 ml Output Urine Total 650 ml 650 ml 1300 ml # Bowel Movements 3 4 Exam General: No acute distress, well-developed, well-nourished HEENT: Normocephalic, atraumatic Cardiovascular: Regular rate and rhythm with no murmurs, rubs, or gallops appreciated Pulmonary: Clear to auscultation bilaterally with no crackles, wheezes, or rhonchi. Abdomen: Mild tenderness to palpation RUQ. Bowel tones present. Soft, obese, nondistended. Hepatosplenomegaly. Extremities: No clubbing, cyanosis, edema, or lymphadenopathy appreciated. Skin: Telangiectasias on chest and arms. Psychiatric: Normal mood and affect. Alert and oriented to person, place, and time. Lab and Diagnostics Result Diagram: 08/16/16 0610 08/16/16 0610 X-Rays, CTs and MRIs CT abdomen and pelvis Exam date: 08/14/2016 Conclusion: Marked fatty infiltration of the liver. TIPS. Gallstones. 5.5 cm left ovarian cyst. Nonemergent ultrasound is recommended to exclude malignant features. Radiologist: Guero Sherwood MD PROCEDURE: US ABDOMEN, LIMITED ([id number]) INDICATIONS: abd pain, gallstones on CT FINDINGS: The liver demonstrates steatosis as well but overall cirrhotic appearance. The gallbladder demonstrates mild wall thickening as well as multiple nonmobile areas of increased echogenicity. Common bile duct is well common hepatic duct are not well-visualized secondary to patient body habitus. IMPRESSION: 1. Nonmobile areas of increased echogenicity within the gallbladder as well as color wall thickening. Findings are suspicious for adherent stones or sludge with likely superimposed cholecystitis. Dictated by: Sherine Biswas M.D. on 08/15/2016 at 15:36 Approved by: Sherine Biswas M.D. on 08/15/2016 at 15:36 Assessment & Plan Patient is a 65-year-old female with alcoholic induced liver cirrhosis s/p TIPS , hepatic encephalopathy and hypertension admitted for abdominal pain, hyperammonemia, hyponatremia, hyperbilirubinemia and transaminitis. 1. Acute abdominal pain. Present on admission. Active -CT abdomen/pelvis shows marked fatty infiltration of the liver, gallstones, 5.5cm left ovarian cyst, small fat-containing umbilical hernia -US ABD suggestive of cholecystitis -WBC increase from the day to admission, 13.1 today -Start Ancef 2 g IV q8h -Mild tenderness on exam; no tense ascites; h/o rectal bleeding -EGD and colonoscopy tomorrow morning per Dr. Fatima 2. Alcoholic induced liver cirrhosis s/p TIPS. Present on admission. Active -MELD 26 = 19.6%; Discriminant function score 39. Consider pentoxifylline or steroids barring active infection -Patient has been non-compliant with medications. Formerly on spironolactone, Lasix and lactulose -Jaundice on examination but otherwise compensated without ascites or encephalopathy -Pt is not a liver transplant candidate given her continued use of alcohol 3. Hyperammonemia. Unknown acuity. Present on admission. Active -Ammonia 159 -Patient is currently not confused or altered on exam -Prophylaxis with lactulose and Xifaxam 550 mg - titrate to 3 BM/day 4. Transaminitis and elevated alkaline phosphatase. Unknown acuity. Present on admission. Active -AST 228, ALT 152, alk phos 262 -Possibly progression of alcoholic liver disease -Consider acute hepatitis panel -Follow with CMP 5. Hyperbilirubinemia. Unknown acuity. Present on admission -Total bilirubin 8.8, direct bilirubin 7.2 -Possible progression of liver disease or sequela of TIPS 6. Acute on chronic hematochezia . Present on admission. Active -In setting of patient with hemorrhoids -Will hold heparin -Hemoglobin /hematocrit 11.1/30.4 -Colonoscopy tomorrow 7. Hyponatremia. Unknown acuity. Present on admission. Active -Na 123 -Liver cirrhosis that is fairly compensated - no ascites or encephalopathy -Possibly from volume depletion secondary to current nausea, vomiting and diarrhea 9. Acute on chronic cough. Present on admission. Improving -Lung exam unremarkable -Respiratory virus PCR 10. Intertrigo, chronic. Present on admission. Active -Nystatin powder 11. Alcohol dependence, chronic. Present on admission. Active -Patient continues to consume vodka despite cirrhosis. Discussed alcohol cessation with patient -Currently no signs of withdrawal. Monitor for withdrawal -Start multivitamin and Folate -Outpatient alcoholic rehabilitation program Patient Status: Patient is admitted under inpatient status with expected length of stay greater than 2 midnights due to severity of presenting symptoms, risk of adverse event, and complexity of treatment plan. GI Prophylaxis: Not indicated VTE Prophylaxis: Sub-Q Heparin (Unfractionated) Resuscitation Status: CPR: Attempt Resuscitation Attending Statement The patient was seen and examined together with Dr. Matias on 08/16/2016 and I agree with the history, exam and plan as outlined in the note above. ERIN MATIAS DO Aug 16, 2016 19:29 Tejinder Lerma MD Aug 17, 2016 09:24
--- NOTE | 2016-08-16 19:48 | NUR ---
Colon prep: Patient started Colyt colon prep at 1730, Zofran was given IV for her nausea which was effective to help her drink the prep without vomiting. Patient is scheduled to have a colonoscopy and endoscopy in the morning.
[2016-08-16 20:43] VITALS: BP 95/63; PULSE 86; RESP 20; O2SAT 94
[2016-08-17] VITALS (19 sets, daily range): BP systolic 59–100; BP diastolic 29–71; PULSE 81–119; RESP 14–41; O2SAT 84–97
[2016-08-17] MEDS: CeFAZolin Inj 2 GM in IV Premix 1 EACH IV SCH (00:02)
[2016-08-17] MEDS: Heparin 5,000 Unit/mL Inj SUBQ SCH ×3 (00:07→16:30)
[2016-08-17] MEDS ORDERED: 0.9% Sodium Chloride 500 ML ONE ×2 (06:24→19:37)
--- NOTE | 2016-08-17 06:34 | NUR ---
Hypotension Pt on golytely bowel prep for todays colonoscopy and endoscopy. Visualized blood in stool at least once. Pt tore out IV from arm, new one placed by charge nurse. Manual BP at 80/50 during VS charting. Pt reporting SOB and dizziness. Pt normal BP during stay has been around 94-105/50-60. Placed pt in Trendelenburg position, once pt reported difficulty breathing raised HOB to help with breathing. Pt put on 4L NC. Automatic BP at 74/63. MDs & RT called. Blood glucose at 63. 1/2 D50 Syringe pushed. MD ordered 500 mL NS wide open administered. RT placed non-rebreather mask on with 16L O2. Repeat Blood glucose at 102. MD ordered chest XRAY obtained. O2 titrated to 8L, additional L NS given wide open. MDs in room, monitoring. Will report to next shift.
[2016-08-17] MEDS ORDERED: 0.9% Sodium Chloride 1,000 ML ONE (06:53)
[2016-08-17] MEDS ORDERED: 0.9% Sodium Chloride 1,000 ML IV ONE ×4 (06:55→14:35)
[2016-08-17] MEDS: Lactulose 20 Gm/30 mL 30 mL Syrup PO SCH ×3 (08:30→20:09)
[2016-08-17] MEDS ORDERED: 0.9% Sodium Chloride 1,000 ML IV SCH (10:05)
--- NOTE | 2016-08-17 10:22 | PROG NOTE ---
[address] [address] PROGRESS NOTE PATIENT: JANE NOLAND : 1950 MR#: [id number] ADMIT: 08/15/2016 JOB ID: [id number] DATE: 08/17/2016 SUBJECTIVE: She has been placed on Ancef for possible cholecystitis. This morning she had an episode of hypotension and hypoglycemia. She is scheduled for EGD later on this morning. OBJECTIVE: Her exam is the same. Her labs are pending from this morning, have not been drawn yet. IMPRESSION AND PLAN: The patient continues to have abdominal pain and be fairly ill, though my impression is that this is largely due to her liver failure. Again, I think it is more likely than not that she does not have acute cholecystitis but simply has chronic thickening of the gallbladder wall and gallstones and sludge; however, she is being treated empirically with antibiotics and if it is felt that she does have acute cholecystitis and that she is not responding to IV antibiotics, the next step would be a cholecystostomy tube rather than consideration of surgery. At this time, as stated above, I think it is more likely than not that she does not have acute cholecystitis. General Surgery will continue to follow along.
--- NOTE | 2016-08-17 10:28 | DRSVH ---
PROCEDURE: X-RAY CHEST ONE VIEW, PORTABLE ([id number]) INDICATIONS: SOB TECHNIQUE: One view of the chest was acquired. COMPARISON: [facility], , CHEST 1VW (PORTABLE), 12/04/2012, 13:51. FINDINGS: Surgical changes and devices: None. Lungs and pleura: No pleural effusions or pneumothorax. Patchy consolidative and groundglass opaciti es involving the right upper lower lobes, left lung diffusely. Mediastinum: Mediastinal contours appear normal. Heart size is normal. Bones and chest wall: No suspicious bony lesions. Overlying soft tissues appear unremarkable. IMPRESSION: Diffuse, bilateral ill-defined and groundglass opacities suggesting multifocal pneumonia although cannot exclude superimposed pulmonary edema. Please correlate clinically Dictated by: Haseeb Floyd M.D. on 08/17/2016 at 10:26 Approved by: Haseeb Floyd M.D. on 08/17/2016 at 10:26
[2016-08-17] MEDS ORDERED: Vancomycin Dose per Pharmacist XX SCH (10:35)
[2016-08-17] MEDS ORDERED: Sodium Chloride LOK Flush 10 mL Syringe IVFLUSH PRN ×2 (10:40)
[2016-08-17] MEDS ORDERED: Piperacillin-Tazo 3.375 Gm Inj 3.375 GM in Dextrose 5% Minibag Plus 50 ML IV SCH (11:00)
--- NOTE | 2016-08-17 11:22 | ABG ---
DateTimeAnalyzed 11:17:00 -_ pH ____7.290 - 7.350 7.450 pCO2 ___37.9__ -mmHg 35.0 45.0 pO2 ___67.7__ -mmHg 69.0 116 HCO3- ___17.7__ -mmol/L 22.0 26.0 ABE ___-7.8__ -mmol/L -2.0 2.0 tHb ___10.9__ -g/dL O2Hb ___89.6__ -% COHb ____0.8__ -% MetHb ____0.9__ -% sO2 ___91.2__ -% FIO2 ___60.0__ -% Drawn By jmw - Date/Time Notified____ 11:21:00 -_ Liter_Flow ___10.0__ -L/min Oxygen Device 1 __OXYMASK - Notified Whom _DR JESUS - B 753 -mmHg tO2 ___13.8__ -Vol% Paras test _Positive -
[2016-08-17] MEDS: 0.9% Sodium Chloride 1,000 ML IV SCH ×3 (12:20→16:17)
--- NOTE | 2016-08-17 12:20 | NUR ---
tfr to [facility] pt desated to 79% on 5L NC, called RT and pt was placed on 10L oxymask, Sp02 stayed between 86-92%. Pt was given 1L bolus for low BP on night shift supervisor, BP in morning was 85/52, MD notified, administered second 1L bolus. Pts bp remain systolically in the 80s. IV infiltrated in left hand and new one was placed in left foot. pt was alert and oriented but anxious. Sent to p[facility] where picc line was to be placed. ABGs ran.
--- NOTE | 2016-08-17 12:27 | NUR ---
arrived to [facility] 2009/received report/bolus Pt arrived to [facility] 2009 at 1142 from [facility], received report from Dmitri FARRIS at 1150, IV therapy in room attempting to place PICC line. NS bolus which was started upstairs completed and BP 59/44, notified, order for 3rd NS Bolus, started at 999ml/hr. BP 86/38, 63/29, 82/69. BP set to q5 minutes. Addendum: 08/17/16 at 1231 by LYNETTE CASTRO RN Bp 93/66 Addendum: 08/17/16 at 1319 by LYNETTE CASTRO RN PICC line placed by IV therapy, labs drawn and sent to lab. Pt to be CCU status, report to Maria Esther Wilder RN at 1310 who will resume care of pt. Call light in reach, Care ongoing. Addendum: 08/17/16 at 1319 by LYNETTE CASTRO RN Awaiting antibiotics from pharmacy.
--- NOTE | 2016-08-17 12:59 | PCM.PNMED ---
Subjective Date of Service Aug 17, 2016 Subjective Pt was started on Golytely last night at about 5 pm. This morning pt's BP dropped to 80/50 and she c/o SOB and dizziness. She was put on O2 4L, BP continued to drop to 74/63, blood glucose was 63, she received 1/2 D50 syringe push, NS 500 mg bolus, O2 16L, repeat blood glucose 102. She received two more liters of NS, on 150 mls/hr maintenance IVF now, O2 titrated to 8L. Pt has been transported to ICU. Exam Vital Signs Vital Sign - Last Date Time Temp Pulse Resp B/P Pulse Ox O2 Delivery O2 Flow Rate FiO2 08/17/16 11:56 83 08/17/16 08:43 36.8 20 95/52 90 Nasal Cannula 3.50 Intake and Output 08/16/16 08/16/16 08/17/16 Cumulative From/Thru 15:00 23:00 07:00 08/14/16 21:44 - 08/17/16 06:34 Intake Total 1619 ml 1600 ml 5919 ml Output Total 1300 ml Balance 1619 ml 1600 ml 4619 ml Intake Oral 1619 ml 1600 ml 4919 ml IV Total 1000 ml Output Urine Total 1300 ml # Voids 2 4 6 # Bowel Movements 3 3 10 Exam General: Pale, anxious female in acute distress Neuro: no focal deficit Lab and Diagnostics Result Diagram: 08/16/16 0610 08/16/16 0610 X-Rays, CTs and MRIs CT ABDOMEN AND PELVIS Exam date: 08/14/2016 Conclusion: Marked fatty infiltration of the liver. TIPS. Gallstones. 5.5 cm left ovarian cyst. Nonemergent ultrasound is recommended to exclude malignant features. Radiologist: Guero Sherwood MD PROCEDURE: US ABDOMEN, LIMITED ([id number]) INDICATIONS: abd pain, gallstones on CT FINDINGS: The liver demonstrates steatosis as well but overall cirrhotic appearance. The gallbladder demonstrates mild wall thickening as well as multiple nonmobile areas of increased echogenicity. Common bile duct is well common hepatic duct are not well-visualized secondary to patient body habitus. IMPRESSION: 1. Nonmobile areas of increased echogenicity within the gallbladder as well as color wall thickening. Findings are suspicious for adherent stones or sludge with likely superimposed cholecystitis. Dictated by: Sherine Biswas M.D. on 08/15/2016 at 15:36 Approved by: Sherine Biswas M.D. on 08/15/2016 at 15:36 PROCEDURE: X-RAY CHEST ONE VIEW, PORTABLE ([id number]) INDICATIONS: SOB FINDINGS: Surgical changes and devices: None. Lungs and pleura: No pleural effusions or pneumothorax. Patchy consolidative and groundglass opacities involving the right upper lower lobes, left lung diffusely. Mediastinum: Mediastinal contours appear normal. Heart size is normal. Bones and chest wall: No suspicious bony lesions. Overlying soft tissues appear unremarkable. IMPRESSION: Diffuse, bilateral ill-defined and groundglass opacities suggesting multifocal pneumonia although cannot exclude superimposed pulmonary edema. Please correlate clinically Dictated by: Haseeb Floyd M.D. on 08/17/2016 at 10:26 Approved by: Haseeb Floyd M.D. on 08/17/2016 at 10:26 Additional Diagnostics BLOOD GAS ARTERIAL DateTimeAnalyzed 11:17:00 -_ pH ____7.290 - 7.350 7.450 pCO2 ___37.9__ -mmHg 35.0 45.0 pO2 ___67.7__ -mmHg 69.0 116 HCO3- ___17.7__ -mmol/L 22.0 26.0 ABE ___-7.8__ -mmol/L -2.0 2.0 tHb ___10.9__ -g/dL O2Hb ___89.6__ -% COHb ____0.8__ -% MetHb ____0.9__ -% sO2 ___91.2__ -% FIO2 ___60.0__ -% Drawn By jmw - Date/Time Notified____ 11:21:00 -_ Liter_Flow ___10.0__ -L/min Oxygen Device 1 __OXYMASK - Notified Whom _DR JESUS - B 753 -mmHg tO2 ___13.8__ -Vol% Paras test _Positive - Assessment & Plan Patient is a 65-year-old female with alcoholic induced liver cirrhosis s/p TIPS , hepatic encephalopathy and hypertension admitted for abdominal pain, hyperammonemia, hyponatremia, hyperbilirubinemia and transaminitis. # Severe sepsis, acute, not present on admission -RR 26, BP 74/63, WBC 13.1, liver failure, multifocal pneumonia -Lactic acid q2h x 4, blood cultures, CBC, CMP pending -CXR shows multifocal infiltrates -Pt was bolused with 2.5 liters of NS for her acute hypotension -Start IV Vancomycin and Zosyn -Transfer to ICU -Critical Care has been consulted # Pneumonia, acute, not present on admission -Pt presented with acute on chronic cough -Lung exam unremarkably on admission -CXR 08/17/15 reveals patchy consolidative and ground glass opacities involving the right upper lower lobes, left lung diffusely, suggesting multifocal pneumonia -WBC 13.1 on 08/16/15 -Blood cultures, resp. viral PCR pending -Start IV Vancomycin and Zosyn # Acute Respiratory Failure, Hypoxemic -Continue supplemental O2 to keep SpO2 greater than 92% -Will obtain STAT ABG now -Pulmonology consulted # Acute abdominal pain. Present on admission. Active -CT abdomen/pelvis shows marked fatty infiltration of the liver, gallstones, 5.5cm left ovarian cyst, small fat-containing umbilical hernia -US ABD suggestive of cholecystitis, WBC 13.1 -Mild tenderness on exam; no tense ascites; h/o rectal bleeding -EGD and colonoscopy postponed until patient is stable -Stop Ancef 2 g IV q8h (IV Vanco and Zocyn started this am) # Alcoholic induced liver cirrhosis s/p TIPS. Present on admission. Active -MELD 26 = 19.6%; Discriminant function score 39. Consider pentoxifylline or steroids barring active infection -Patient has been non-compliant with medications. Formerly on spironolactone, Lasix and lactulose -Jaundice on examination but otherwise compensated without ascites or encephalopathy -Pt is not a liver transplant candidate given her continued use of alcohol # Hyperammonemia. Unknown acuity. Present on admission. Active -Ammonia 159 -Patient is currently not confused or altered on exam -Prophylaxis with lactulose and Xifaxam 550 mg - titrate to 3 BM/day #Transaminitis and elevated alkaline phosphatase. Unknown acuity. Present on admission. Active -AST 228, ALT 152, alk phos 262 -Possibly progression of alcoholic liver disease -Consider acute hepatitis panel -Follow with CMP # Hyperbilirubinemia. Unknown acuity. Present on admission -Total bilirubin 8.8, direct bilirubin 7.2 -Possible progression of liver disease or sequela of TIPS # Acute on chronic hematochezia . Present on admission. Active -In setting of patient with hemorrhoids -Will hold heparin -Hemoglobin /hematocrit 11.1/30.4 -Dirk occult blood positive -Colonoscopy postponed -Monitor HGB&HCT q6h x 4 # Hyponatremia. Unknown acuity. Present on admission. Active -Na 123 -Liver cirrhosis that is fairly compensated - no ascites or encephalopathy -Possibly from volume depletion secondary to current nausea, vomiting and diarrhea # Alcohol dependence, chronic. Present on admission. Active -Patient continues to consume vodka despite cirrhosis. Discussed alcohol cessation with patient -Currently no signs of withdrawal. Monitor for withdrawal -Start multivitamin and Folate -Outpatient alcoholic rehabilitation program # Intertrigo, chronic. Present on admission. Active -Nystatin powder Patient Status: Patient is admitted under inpatient status with expected length of stay greater than 2 midnights due to severity of presenting symptoms, risk of adverse event, and complexity of treatment plan. GI Prophylaxis: Not indicated VTE Prophylaxis: Sub-Q Heparin (Unfractionated) VTE Mechanical Devices: Intermittant Pneumatic CD Resuscitation Status: CPR: Attempt Resuscitation Time spent 90 minutes critical care time spent in managing pts acute severe sepsis secondary to her pneumonia. Attending Statement The patient was seen and examined together with Dr. Matias on 08/17/2016 and I agree with the history, exam and plan as outlined in the note above. ERIN MATIAS DO Aug 17, 2016 12:59 Tejinder Lerma MD Aug 17, 2016 14:15
[2016-08-17] MEDS: Nystatin 100,000 Unit/Gm 15 Gm Powder TOPICAL SCH ×2 (13:11→22:10)
[2016-08-17 13:16] LABS: Mean Corpuscular Hemoglobin 34.7 pg (27.0-35.0); Mean Corpuscular Volume 95.5 fL (81-100); Platelet Count 119 bil/L (150-400)
[2016-08-17] MEDS ORDERED: Renal Dosing Per Pharmacist IV SCH (13:25)
--- NOTE | 2016-08-17 13:40 | PCM.ANEPRE ---
Anesthesia Pre-Op Review Reason for Review: Transfer to ICU. Sepsis, hypoxemia, liver failure, and probably pneumonia. Anesthesia Recommendations: Delay until Additional Data Obtain Additional Comments I evaluated this patient in person in the ICU after discussing her worsening condition with Dr. Fatima. Unless her EGD and colonoscopy are truly life-saving procedures, it is prudent to wait until she is more stable (specifically, not hypoxic with impending respiratory failure, improved acidosis, normotensive with appropriate response to sepsis treatment.) Rafy Kevin MD Aug 17, 2016 13:40
[2016-08-17 14:01] LABS: BASOPHILS % (AUTO) 0 % (0-3); EOSINOPHILS % (AUTO) 0 % (0-5); MONOCYTES % (AUTO) 2 % (4-12)
--- NOTE | 2016-08-17 14:01 | CONS ---
[address] [address] CONSULTATION REPORT PATIENT: JANE NOLAND : 1950 MR#: [id number] ADMIT: 08/15/2016 JOB ID: [id number] DATE OF SERVICE: 08/17/2016 PULMONARY CRITICAL CARE PROGRESS NOTE: The patient is a 65-year-old woman with cirrhosis, portal hypertension admitted with a GI bleed seen in consultation for hypotension at the request of Dr. Le. HISTORY OF PRESENT ILLNESS: The patient initially presented on August 15 with lower abdominal pain for one week. She has a history of cirrhosis status post TIPS, hepatic encephalopathy. She was admitted to the hospital on August 15 and has been getting a prep for upper and lower GI endoscopies which were supposed to be done today. Her last hemoglobin yesterday morning was 11 compared to 13 on admission. She did report history of hematochezia versus bleeding hemorrhoids. No hematemesis. Constipation/diarrhea intermittently. She was continuing to drink alcohol despite her cirrhosis. The floor was having difficulty getting IV access so she has not had a hemoglobin checked since yesterday morning. Overnight she has developed hypotension and worsening hypoxia for which she has been moved to the ICU. She is currently on a non-rebreather saturating in the mid 90s. Her blood pressure has been anywhere from 80s-90s and because of difficulty with IV access, she has only received one small bolus. PAST MEDICAL HISTORY: 1. Alcoholic cirrhosis. 2. Portal hypertension. 3. Status post TIPS. 4. Continued alcohol use. 5. Hemorrhoids. FAMILY HISTORY: Mother with breast/lung cancer. SOCIAL HISTORY: Continued alcohol use as well as tobacco use. REVIEW OF SYSTEMS: Methicillin-sensitive Staphylococcus aureus bacteremia. REVIEW OF SYSTEMS: Positive for abdominal pain, shortness of breath, some confusion. Complete review of systems could not be obtained due to her hemodynamic instability and confusion. PHYSICAL EXAMINATION: Vital signs reviewed. Temperature 36.8, pulse 87, respirations 30, BP 93/66, sats 93% on 10 L Oxy Mask. General: Morbidly obese woman, lethargic, somewhat cooperative but not answering all questions. Neck: No cervical lymphadenopathy. Chest: Bilateral crackles heard all over the lung otero. Heart: Regular rate and rhythm. No murmurs. Abdomen: Somewhat distended but nontender. Extremities: No cyanosis, clubbing, edema. Skin: No rashes. LABORATORIES: Reviewed. WBC 13.1, hemoglobin 11.1, platelets 131. INR 1.5 from August 14. It has not been checked since. Chemistry shows sodium 123, potassium 4.0, chloride 85. Creatinine is up slightly to 1.08. AST and ALT are elevated in the 100-200 range and this has been persistent. Alk phos is 262, bilirubin is 8.8, and trending down since admission. Ammonia is 159. Albumin is 2.7. Cultures-urine culture had bacterial contamination and nasal swab from August 15 was negative. IMAGING: Chest x-ray was reviewed and today's x-ray shows bilateral diffuse infiltrates. There was no prior x-ray done during this admission. ASSESSMENT AND RECOMMENDATIONS: 1. Acute hypoxic respiratory failure on 10 L Oxy Mask. 2. Hypotension-due to sepsis versus hypovolemia. 3. Acute blood loss anemia. 4. ? GI bleed/lower. 5. Cirrhosis with portal hypertension status post TIPS. 6. History of hepatic encephalopathy. 7. Acute kidney injury. 8. Hyponatremia. 9. Transaminitis and hyperbilirubinemia. This 65-year-old woman with portal hypertension and alcoholic cirrhosis with ongoing alcohol use, history of TIPS is presenting with a possible GI bleed and now superimposed with hypotension-due to sepsis versus blood loss. We have not had any labs since yesterday morning so I do not know where her hemoglobin is currently but there is no obvious evidence of bleeding. Alternatively she does have pulmonary infiltrates bilaterally which could be due to a new acute infection or pulmonary edema. From an infection standpoint, she did have a respiratory viral PCR done on August 15 but none since. I will repeat it just to make sure she did not catch anything in the hospital. We also do not have a procalcitonin which we added on. We are checking a BNP to see if this is cardiac source hypoxemia. She is currently on face mask/Oxy Mask doing okay and I do not see any respiratory distress that requires her to be on BiPAP but that would be a consideration if she worsens. From a GI bleed standpoint, we are still waiting on a repeat hemoglobin and will transfuse if needed. GI is on standby to see if she can end up going through her EGD and colonoscopy under the circumstances but with her respiratory status being what it is, I would think this is unlikely unless she is having an active bleed. She should be on antibiotics for GI prophylaxis and it looks like she has been started on broad-spectrum antibiotics for sepsis-vancomycin and Zosyn. She has been getting cefazolin alone for the last few days. I actually think we should not do this combination of antibiotics because of mild kidney injury and probably will ask the pharmacist to change it to vancomycin, cefepime to minimize renal injury. She is also getting lactulose and rifaximin which we should continue. I noticed on her abdominal CT that she had an unusual echogenicity in the posterior heart/left atrial region. I spoke to the radiologist who was unable to explain this either. We are going to get an echocardiogram to see if there is any evidence of intracardiac thrombus based on this. Will continue the fluid resuscitation and if we are unable to maintain her BP with that alone, we will start vasopressors. CRITICAL CARE TIME: 45 minutes.
[2016-08-17 14:02] LABS: NEUTROPHILS % (AUTO) 78 % (40-74)
[2016-08-17] MEDS: Norepineph 8,000 mCg/250 mL NS 8,000 MCG in IV Premix 1 EACH IV SCH ×2 (14:02→22:09)
[2016-08-17] MEDS ORDERED: Azithromycin Inj 500 MG in Dextrose 5% w/Vial Mate 250 ML IV SCH (14:20)
[2016-08-17] MEDS ORDERED: Cefepime Inj 2,000 MG in Dextrose 5% Minibag Plus 50 ML IV SCH (14:30)
--- NOTE | 2016-08-17 14:34 | PCM.PNSURG ---
Subjective Date of Service: Aug 17, 2016 Date of Service: Aug 17, 2016 Visit Information: Subjective: events noted this am. sbp 60s, low blood sugar, 10L oxygen facemask required. cxr shows pna. Postop General: Shortness of Breath Objective Vital Sign- Last 8 Hours Date Time Temp Pulse Resp B/P Pulse Ox O2 Delivery O2 Flow Rate FiO2 08/17/16 14:24 86 26 96 Nasal Cannula 50 90 08/17/16 13:20 36.3 99 22 65/53 97 OxyMask 10.00 08/17/16 12:38 87 30 93 OxyMask 10.00 08/17/16 12:31 93/66 08/17/16 12:27 81 82/69 08/17/16 12:23 63/29 08/17/16 12:15 86/38 08/17/16 12:05 59/44 08/17/16 11:56 83 08/17/16 10:50 36.8 83 20 83/51 93 OxyMask 10.00 08/17/16 10:30 36.8 83 20 88/50 90 Nasal Cannula 3.50 08/17/16 08:43 36.8 83 20 95/52 90 Nasal Cannula 3.50 Intake and Output- Last 8 Hour 08/17/16 Cumulative From/Thru 07:00 08/14/16 21:44 - 08/17/16 06:34 Intake Total 1600 ml 5919 ml Output Total 1300 ml Balance 1600 ml 4619 ml Intake Oral 1600 ml 4919 ml IV Total 1000 ml Output Urine Total 1300 ml # Voids 4 6 # Bowel Movements 3 10 General: Oriented X3 Neck: Supple Lungs: Rhonchorus, Wheezes Heart: Exam Unremarkable Abdomen: Benign, Soft, Non-tender, Non-distended, Normoactive bowel tones Extremities: Distal Pulses Palpable Result Diagram: 08/17/16 1250 08/17/16 1304 Assessment & Plan Impression 65-year-old female with history of alcoholic cirrhosis, MELD score upon admission was 20, status post TIPS procedure 4-1/2 years ago at [facility] complicated by hepatic encephalopathy, currently having only one bowel movement per day and not taking lactulose or Xifaxan as an outpatient, history of hypertension, alcohol abuse in which she drinks one pint of vodka per day for the past seven years but currently drinks four shots of vodka per day for the past one year and last drank August 10, who presents here for rectal bleeding, abdominal pain, and management of her cirrhosis. The patient should be started on lactulose and Xifaxan 550 mg by mouth twice a day for her history of encephalopathy. In regards to her rectal bleeding, this mostly sounds like hemorrhoids, but the patient will need an EGD and colonoscopy given her abdominal pain to rule out peptic ulcer disease along with her rectal bleeding. The patient's continued alcohol use is concerning given the fact that now her liver enzymes are elevated most likely due to acute alcoholic hepatitis given the fact that her AST/ALT ratio is 2:1. The patient's Maddrey discriminant function score upon admission was 28, therefore no steroids is indicated. The patient should undergo a substance abuse rehabilitation alcohol program as an outpatient. 08/17/16-events noted this am. sbp 60s, low blood sugar, 10L oxygen facemask required. cxr shows pna. hb 10.1. mild rectal bleed. RECOMMENDATIONS: 1. Hold off EGD and colonoscopy with anesthesia for her abdominal pain and rectal bleeding given hemodynamically unstable and pna. 2. cont Lactulose and Xifaxan 550 mg by mouth twice a day for her history of encephalopathy- titrate to 3bm/day 3. Alcohol cessation. 4. multivitamin and folate. 5. Recommendations per General Surgery. 6. Outpatient alcoholic rehabilitation program. The patient is not a liver transplant candidate given her continued use of alcohol. will cont to follow Problems: VTE Prophylaxis: Sub-Q Heparin (Unfractionated) Resuscitation Status: CPR: Attempt Resuscitation Dmitri Fatima MD Aug 17, 2016 14:34
--- NOTE | 2016-08-17 15:00 | PCM.PHAPRO ---
Progress Vancomycin dosing per Pharmacy: -Indication: severe sepsis, pt presenting with multifocal infiltrates on chest xray -Concurrent antibiotics: Cefepime 2gm iv [id number] and Azithromycin 500mg iv [id number] -65 yo female, serum creatinine 1.08, wbc 11.6, est creatinine clearance~ 40ml/ min -pertinent hx: pt with cirrhosis -transferred to CCU today for hypotension/sepsis -Plan: a loading dose of Vancomycin 1.5gm was given ~ 1330 today Subsequent doses of 1.25gm iv [id number] to be started tomorrow at 1300. Trough level to be drawn prior to 4th dose (08/20 @ 1230) or sooner if creatinine increases. Lynette Mast [facility] Aug 17, 2016 15:00
--- NOTE | 2016-08-17 15:03 | DRSVH ---
PROCEDURE: X-RAY PICC LINE PLACEMENT BY NURSE ([id number]) INDICATIONS: Sepsis COMPARISON: [facility], CT, CT ABD PELVIS W CON, 08/14/2016, 23:26. FINDINGS: PICC was placed by the intravenous therapy team from the left side. Fluoroscopic spot jadyn m demonstrates tip of PICC possibly within a persistent left SVC. IMPRESSION: Status post placement of left PICC line. The tip projects over the left upper mediastinum , possibly within a persistent left-sided SVC although recommend clinical correlation. If clinically indicated, contrast-enhanced chest CT could be performed for definitive assessment. Findings were pe rsonally discussed with Dr. Lerma 1500 hours 08/17/16 Dictated by: Haseeb Floyd M.D. on 08/17/2016 14:27 Approved by: Haseeb Floyd M.D. on 08/17/2016 at 15:01
--- NOTE | 2016-08-17 15:15 | PCM.PNMED ---
Subjective Date of Service Aug 17, 2016 Subjective This patient was admitted for possible rectal bleeding and context of known cirrhosis, portal hypertension and a history of TIPS procedure with a meld score of 20. She had been prepared for EGD and colonoscopy today. She became acutely hypotensive without evidence of renewed rectal bleeding this morning and then hypoxic. The patient's chest x-ray reveals bilateral pulmonary infiltrates. She has had no recent rhinorrhea or sore throat or cough. No fevers or chills. The patient has a right arm PICC which is not functioning correctly. A CT scan indicated 3 artifacts in the atrium of the left side of the heart. An echo is ordered and pending. The patient is currently being supported on nasal high flow oxygen. She is coherent. We had a discussion regarding level of care. She seems to understand the condition of her body and lack of reserve. She declines intubation and mechanical ventilation if she fails to be supported by high flow oxygen or BiPAP. She also agrees to DO NOT RESUSCITATE in the event of a cardiac arrest. Patient had received 4 L of crystalloid solution this morning is now on #5 with a systolic blood pressure of 75. Exam Vital Signs Vital Sign - Last Date Time Temp Pulse Resp B/P Pulse Ox O2 Delivery O2 Flow Rate FiO2 08/17/16 14:24 86 26 96 Nasal Cannula 50 90 08/17/16 13:20 36.3 65/53 Intake and Output 08/16/16 08/16/16 08/17/16 Cumulative From/Thru 15:00 23:00 07:00 08/14/16 21:44 - 08/17/16 06:34 Intake Total 1619 ml 1600 ml 5919 ml Output Total 1300 ml Balance 1619 ml 1600 ml 4619 ml Intake Oral 1619 ml 1600 ml 4919 ml IV Total 1000 ml Output Urine Total 1300 ml # Voids 2 4 6 # Bowel Movements 3 3 10 Exam Alert oriented 3, chronically ill. Jaundiced. Fluids speech. Icteric sclerae. Symmetric pupils. No facial droop. Neck supple. Lungs with diminished breath sounds in the bases get air movement and no wheezing. Heart is regular without murmur gallop or rub. Abdomen somewhat distended nontender. Extremities are relatively free of edema There is muscle atrophy. IVs and Medications Medications Reviewed: Medications were reviewed in detail Lab and Diagnostics Result Diagram: 08/17/16 1250 08/17/16 1304 X-Rays, CTs and MRIs CT ABDOMEN AND PELVIS Exam date: 08/14/2016 Conclusion: Marked fatty infiltration of the liver. TIPS. Gallstones. 5.5 cm left ovarian cyst. Nonemergent ultrasound is recommended to exclude malignant features. Radiologist: Guero Sherwood MD PROCEDURE: US ABDOMEN, LIMITED ([id number]) INDICATIONS: abd pain, gallstones on CT FINDINGS: The liver demonstrates steatosis as well but overall cirrhotic appearance. The gallbladder demonstrates mild wall thickening as well as multiple nonmobile areas of increased echogenicity. Common bile duct is well common hepatic duct are not well-visualized secondary to patient body habitus. IMPRESSION: 1. Nonmobile areas of increased echogenicity within the gallbladder as well as color wall thickening. Findings are suspicious for adherent stones or sludge with likely superimposed cholecystitis. Dictated by: Sherine Biswas M.D. on 08/15/2016 at 15:36 Approved by: Sherine Biswas M.D. on 08/15/2016 at 15:36 PROCEDURE: X-RAY CHEST ONE VIEW, PORTABLE ([id number]) INDICATIONS: SOB FINDINGS: Surgical changes and devices: None. Lungs and pleura: No pleural effusions or pneumothorax. Patchy consolidative and groundglass opacities involving the right upper lower lobes, left lung diffusely. Mediastinum: Mediastinal contours appear normal. Heart size is normal. Bones and chest wall: No suspicious bony lesions. Overlying soft tissues appear unremarkable. IMPRESSION: Diffuse, bilateral ill-defined and groundglass opacities suggesting multifocal pneumonia although cannot exclude superimposed pulmonary edema. Please correlate clinically Dictated by: Haseeb Floyd M.D. on 08/17/2016 at 10:26 Approved by: Haseeb Floyd M.D. on 08/17/2016 at 10:26 Additional Diagnostics BLOOD GAS ARTERIAL DateTimeAnalyzed 11:17:00 -_ pH ____7.290 - 7.350 7.450 pCO2 ___37.9__ -mmHg 35.0 45.0 pO2 ___67.7__ -mmHg 69.0 116 HCO3- ___17.7__ -mmol/L 22.0 26.0 ABE ___-7.8__ -mmol/L -2.0 2.0 tHb ___10.9__ -g/dL O2Hb ___89.6__ -% COHb ____0.8__ -% MetHb ____0.9__ -% sO2 ___91.2__ -% FIO2 ___60.0__ -% Drawn By jmw - Date/Time Notified____ 11:21:00 -_ Liter_Flow ___10.0__ -L/min Oxygen Device 1 __OXYMASK - Notified Whom _DR JESUS - B 753 -mmHg tO2 ___13.8__ -Vol% Paras test _Positive - Assessment & Plan Patient is a 65-year-old female with alcoholic induced liver cirrhosis s/p TIPS , hepatic encephalopathy and hypertension admitted for abdominal pain, hyperammonemia, hyponatremia, hyperbilirubinemia and transaminitis. 1. Acute hypoxic respiratory failure. The patient will be supported oxygen up to and including BiPAP. She will also be treated for possible pneumonia as evidenced on x-ray. She is DNR/DNI. 2. Pneumonia, possible aspiration. The patient was placed on broad-spectrum antibiotic pulmonary no change status for now. We will obtain cultures and sputum data. Support as outlined above 3. Possible rectal bleeding. POA. The patient has hematocrit of 27 at this time we will follow her hematocrit and clinical status closely. Blood product support as needed. We will check ProTime. 4. Probable hypovolemia. We will aggressively fluid resuscitate this patient who is hypotensive. We will reserve pressors for evidence of persistent hypotension in spite of adequate fluid resuscitation. 5. Hyponatremia. This likely is multifactorial both chronic and also has a manifestation of her acute Depletion. Crystalloid resuscitation and follow 6. Known alcohol-induced cirrhosis with TIPS and varices. Mild score of 20. 7. Alcoholism. Follow clinically. CIWA as indicated. 8. Acute hepatic dysfunction, alcohol-induced hepatitis. Support clinically. 9. Acute kidney injury. Likely manifestation of sepsis and hypovolemia. Fluid resuscitate and follow renal indices closely. Avoid nephrotoxins. 8. She was to resuscitate, confirmed today. She is also DO NOT INTUBATE. Pain Evaluation: Adequate Pain Control GI Prophylaxis: Not indicated VTE Prophylaxis: Sub-Q Heparin (Unfractionated) VTE Mechanical Devices: Intermittant Pneumatic CD Resuscitation Status: CPR: Attempt Resuscitation Time spent 40 minutes Paras Low MD Aug 17, 2016 15:15
--- NOTE | 2016-08-17 15:16 | PCM.PHAPRO ---
Progress Addendum: -creatinine has increased to 1.76 this afternoon. will need to check in am tomorrow prior to any administration of Vancomycin. Lynette Mast [facility] Aug 17, 2016 15:16
--- NOTE | 2016-08-17 15:19 | DRSVH ---
PROCEDURE: X-RAY CHEST ONE VIEW, PORTABLE ([id number]) INDICATIONS: PICC LINE ISSUE TECHNIQUE: One view of the chest was acquired. COMPARISON: [facility], CR, XR PICC LINE PLACE BY NURSE, 08/17/2016, 12:14. [facility], CR, XR CHEST 1VW (PORTABLE), 08/17/2016, 6:40. FINDINGS: Surgical changes and devices: Unchanged position and appearance of the left PICC line. Lungs and pleura: No pleural effusions or pneumothorax. Bilateral multifocal consolidations are unch anged. Mediastinum: Mediastinal contours appear normal. Heart size is normal. Bones and chest wall: No suspicious bony lesions. Overlying soft tissues appear unremarkable. IMPRESSION: Left PICC line, with an appearance that suggests placement within a persistent left SVC ( anatomic variant) recommend clinical correlation. If definitive assessment is necessary, a contrast-e nhanced chest CT could be performed. Dictated by: Haseeb Floyd M.D. on 08/17/2016 at 15:17 Approved by: Haseeb Floyd M.D. on 08/17/2016 at 15:17
[2016-08-17] MEDS ORDERED: Vasopressin Inj 20 UNIT in 0.9% Sodium Chloride 100 ML IV SCH (15:54)
[2016-08-17] MEDS ORDERED: Flumazenil 0.1 mg/mL 5 mL Inj IV ONE (16:48)
[2016-08-17 17:03] LABS: INR 2.09 ratio
--- NOTE | 2016-08-17 17:25 | DRSVH ---
[facility] [address] [facility] [place] [address] Echocardiogram Report Name: JANE NOLAND te: 08/17/2016 Height: 58 in Hospital Exam Location: [facility] Weight: 182 lb Gender: Female BSA: 1.7 m2 : 1950 Age: 65 yrs BP: 87/51 mmHg Reason For Study: HYPOTENSION, RA THROMBUS BY CT Performed By: Nikita Welsh Referring Physician: AMANDA MARROQUIN Interpretation Summary Patient had difficulty remaining still for exam. The left atrium grossly appears normal in size. Right atrial size is normal. No RA thrombus was appreciated on today's study. The left ventricle is normal in size, wall thickness, and systolic function without any focal wall motion abnormalities. The ejection fraction is estimated to be 70-75%. The right ventricle is normal in size, thickness and function. Pulmonary artery pressures cannot be estimated because of the lack of a measurable TR jet velocity. There is no significant valvular heart disease. Procedure: A two-dimensional transthoracic echocardiogram with color flow and Doppler was performed. The study quality was technically difficult. There is no prior echocardiogram noted for this patient. The patient was in normal sinus rhythm during the exam. Left Ventricle: The left ventricle is normal in size, wall thickness, and systolic function without any focal wall motion abnormalities. The ejection fraction is estimated to be 70-75%. Diastolic function could not be accurately assessed due to tachycardia. Right Ventricle: The right ventricle is normal in size, thickness and function. Atria: The left atrium grossly appears normal in size. Right atrial size is normal. There is no Doppler evidence for an atrial septal defect. Mitral Valve: The mitral valve is grossly normal. There is trace mitral regurgitation. Aortic Valve: The aortic valve is not well visualized. The aortic valve opens well. No aortic regurgitation is present. Tricuspid Valve: The tricuspid valve is not well visualized, but is grossly normal. Pulmonary artery pressures cannot be estimated because of the lack of a measurable TR jet velocity. Pulmonic Valve: The pulmonic valve is not well visualized. There is no significant valvular heart disease. Great Vessels: The aortic root is normal size. The ascending aorta is at the upper limits of normal in size. The pulmonary artery is not well visualized, but is probably normal size. The inferior vena cava was not well visualized. Pericardium/ Pleura There is an anterior echo-free space consistent with a fat pad. There is no pericardial effusion. There is no pleural effusion. MMode/2D Measurements & Calculations LVIDd: 4.8 cm RA long axis LVOT diam LV flores. diameter/BSA LVIDs: 2.6 cm (cm/m^2): 2.7 FS: 46.5 % RA area Ao root diam IVSd: 0.95 cm LVPWd: 0.77 cm : 12.4 cm asc Aorta RA vol: 29.7 ml Diam: 3.4 cm RA : 17.0 mm2 LV sys. diameter/BSA (cm/m^2): 1.5 Doppler Measurements & Calculations Ao V2 max MV E max tao MV E/A: 1.2 PA V2 max : 202.6 cm/sec : 115.0 cm/sec : 109.9 cm/sec Ao max PG MV A max tao PA mean PG : 16.4 mmHg : 97.2 cm/sec : 2.8 mmHg Ao mean PG : 8.2 mmHg MV dec time Ao V2 mean PA V2 mean : 0.21 sec : 133.3 cm/sec : 80.4 cm/sec Ao V2 VTI: 35.7 cm PA pr(Accel) : 18.3 mmHg Reading Physician:AURELIA
--- NOTE | 2016-08-17 18:37 | NUR ---
Cardiac/Resp/Neuro: Pt hypotensive, received 5L NS in 1L boluses, Levophed and Vasopressin infusing, see CCU flowsheet for details, currently normotensive. Did have brief episode of Afib, asymptomatic. [place] [facility] [place], now on 100% FiO2 with high flow canula. Severe agitation/restlessness/thrashing in bed, MD notified, given 1mg Ativan. Pt appeared to be calmer, but then was found to have removed canula and was unresponsive/hypotensive. Replaced canula, increased O2, multiple sternal rubs, VS stabilized, restraints placed, MD at bedside during event. Currently in restraints, moves independently but not purposefully, no attempt to follow commands. IV antibiotics infusing. Care ongoing.
[2016-08-17] MEDS ORDERED: Furosemide 10 mg/mL 4 mL Inj ONE (19:30)
[2016-08-17] MEDS ORDERED: Furosemide 10 mg/mL 4 mL Inj IVPUSH ONE (19:40)
[2016-08-17] MEDS ORDERED: Potassium Chloride 40 mEq/100 mL Premix IV ONE (19:47)
--- NOTE | 2016-08-17 20:04 | PCM.PNMED ---
Subjective Date of Service Aug 17, 2016 Subjective Asked to see pt re increased hypoxia and respiratory distress. Pt curently on high flow O2 supplementation with O2 sats in the mid 70s. pt has an extreme amount of frothy sputum in mouth and suctioned. Pt also hypotensive to SBP high 70s on levophed. CVP is approximately 15. Exam Vital Signs Vital Sign - Last Date Time Temp Pulse Resp B/P Pulse Ox O2 Delivery O2 Flow Rate FiO2 08/17/16 17:00 14 93 Nasal Cannula 60 100 08/17/16 16:30 119 93/58 08/17/16 13:20 36.3 Intake and Output 08/16/16 08/16/16 08/17/16 Cumulative From/Thru 15:00 23:00 07:00 08/14/16 21:44 - 08/17/16 06:34 Intake Total 1619 ml 1600 ml 5919 ml Output Total 1300 ml Balance 1619 ml 1600 ml 4619 ml Intake Oral 1619 ml 1600 ml 4919 ml IV Total 1000 ml Output Urine Total 1300 ml # Voids 2 4 6 # Bowel Movements 3 3 10 Exam Mouth:spontaneous frothy clear sputum in mouth Chest:Diffuse rhonchi COR: RRR S1,S2 distant s murmur heard. Abd: soft,NT Ext:No pedal edema IVs and Medications Medications Reviewed: Medications were reviewed in detail Lab and Diagnostics Intake and Output 08/16/16 08/16/16 08/17/16 Cumulative From/Thru 15:00 23:00 07:00 08/14/16 21:44 - 08/17/16 06:34 Intake Total 1619 ml 1600 ml 5919 ml Output Total 1300 ml Balance 1619 ml 1600 ml 4619 ml Intake Oral 1619 ml 1600 ml 4919 ml IV Total 1000 ml Output Urine Total 1300 ml # Voids 2 4 6 # Bowel Movements 3 3 10 Laboratory Tests 72 Hours Test 08/14/16 22:06 08/14/16 22:11 08/15/16 01:15 08/15/16 06:15 White Blood Count 12.7th/mm3 (3.8-10.1) 11.1th/mm3 (3.8-10.1) Red Blood Count 3.64mil/mm3 (3.90-5.20) 3.37mil/mm3 (3.90-5.20) Hemoglobin 12.6g/dL (12.0-15.6) 11.7g/dL (12.0-15.6) Hematocrit 35.0% (35.0-46.0) 32.2% (35.0-46.0) Mean Corpuscular Volume 96.2fL (81-100) 95.5fL (81-100) Mean Corpuscular Hemoglobin 34.6pg (27.0-35.0) 34.7pg (27.0-35.0) Mean Corpuscular Hemoglobin Concent 36.0% (32.0-37.0) 36.3% (32.0-37.0) Red Cell Distribution Width 15.5% (12.3-15.4) 15.6% (12.3-15.4) Platelet Count 151bil/L (150-400) 135bil/L (150-400) Neutrophils (%) (Auto) 68% (40-74) 60% (40-74) Lymphocytes (%) (Auto) 20% (14-46) 18% (14-46) Monocytes (%) (Auto) 8% (4-12) 15% (4-12) Eosinophils (%) (Auto) 1% (0-5) 2% (0-5) Basophils (%) (Auto) 0% (0-3) 0% (0-3) Band Neutrophils % 2% (1-5) 3% (1-5) Metamyelocytes % 1% (0-0) Myelocytes % 1% (0-0) 2% (0-0) Nucleated Red Blood Cells 1/100 WBC (0-24) Hold Purple Top Tube Received (Received) Hold Blue Top Tube Received (Received) Sodium Level 128mEq/L (134-144) 126mEq/L (134-144) Potassium Level 4.2mEq/L (3.5-5.2) 3.4mEq/L (3.5-5.2) Chloride Level 83mEq/L (97-108) 87mEq/L (97-108) Carbon Dioxide Level 18mmol/L (18-29) 21mmol/L (18-29) Blood Urea Nitrogen 19mg/dL (8-27) 17mg/dL (8-27) Creatinine 0.89mg/dL (0.57-1.00) 0.92mg/dL (0.57-1.00) Estimat Glomerular Filtration Rate 92mL/min (>59) 88mL/min (>59) Glucose Level 87mg/dL (60-99) 77mg/dL (60-99) Calcium Level 10.4mg/dL (8.5-10.1) 9.4mg/dL (8.5-10.1) Magnesium Level 1.5mg/dL (1.6-2.6) Total Bilirubin 10.6mg/dL (0.0-1.2) 9.2mg/dL (0.0-1.2) Aspartate Amino Transf (AST/SGOT) 246U/L (0-50) 222U/L (0-50) Alanine Aminotransferase (ALT/SGPT) 176U/L (0-32) 151U/L (0-32) Alkaline Phosphatase 242U/L (25-165) 224U/L (25-165) Ammonia 159ug/dL (18-53) Total Protein 6.8g/dL (6.4-8.4) 5.5g/dL (6.4-8.4) Albumin 3.3g/dL (3.4-5.0) 2.7g/dL (3.4-5.0) Lipase 20U/L (13-60) Hold Boring Top Tube Received (Received) Hold Mack Top Tube Received (Received) Alcohol, Quantitative < 10mg/dL (0-10) Prothrombin Time 16.3sec (8.1-12.5) Prothromb Time International Ratio 1.51ratio Urine Color [place] (YELLOW) Urine Appearance Cloudy (CLEAR,HAZY) Urine pH 6.0 (5.0-8.0) Urine Specific [place] 1.033 (1.003-1.035) Urine Protein Negativemg/dL (NEG,TRACE) Urine Glucose (UA) Negativemg/dL (NEGATIVE) Urine Ketones Negativemg/dL (NEGATIVE) Urine Occult Blood Moderate (NEGATIVE) Urine Nitrite Negative (NEGATIVE) Urine Bilirubin Moderate (NEGATIVE) Urine Ictotest Positive (Negative) Urine Urobilinogen 1.0mg/dL (NORMAL) Urine Leukocyte Esterase Trace (NEGATIVE) Urine RBC 0-2/hpf (0-2) Urine WBC 6-10/hpf (0-5) Urine Epithelial Cells Many/hpf (NONE-MOD) Urine Crystals None seen (NONE SEEN) Urine Bacteria Many/hpf (NONE-FEW) Urine Hyaline Casts None/lpf (NONE) Urine Granular Casts None seen (NONE SEEN) Urine Waxy Casts None seen (NONE SEEN) Urine Red Blood Cell Casts None seen (NONE SEEN) Urine White Blood Cell Casts None seen (NONE SEEN) Urine Mucus None seen (None Seen) Urine Trichomonas None seen (NONE SEEN) Urine Yeast None (NONE SEEN) Urine Culture Reflexed Indicated Hold Urine Received (Received) Hematology Comments Rbc Direct Bilirubin 7.2mg/dL (0.0-0.3) Test 08/15/16 14:30 08/15/16 15:00 08/15/16 21:20 08/16/16 02:20 Hemoglobin 12.9g/dL (12.0-15.6) 11.6g/dL (12.0-15.6) 11.3g/dL (12.0-15.6) Hematocrit 35.6% (35.0-46.0) 32.1% (35.0-46.0) 31.9% (35.0-46.0) Hepatitis A IgM Antibody Negative (Negative) Hepatitis B Surface Antigen Negative (Negative) Hepatitis B Core IgM Antibody Negative (Negative) Hepatitis C Antibody <0.1s/co ratio (0.0-0.9) Hepatitis C Comment Comment (.) Test 08/16/16 06:10 08/17/16 12:50 08/17/16 13:04 08/17/16 16:00 White Blood Count 13.1th/mm3 (3.8-10.1) 11.6th/mm3 (3.8-10.1) Red Blood Count 3.22mil/mm3 (3.90-5.20) 2.91mil/mm3 (3.90-5.20) Hemoglobin 11.1g/dL (12.0-15.6) 10.1g/dL (12.0-15.6) 10.6g/dL (12.0-15.6) Hematocrit 30.4% (35.0-46.0) 27.8% (35.0-46.0) 29.8% (35.0-46.0) Mean Corpuscular Volume 94.4fL (81-100) 95.5fL (81-100) Mean Corpuscular Hemoglobin 34.5pg (27.0-35.0) 34.7pg (27.0-35.0) Mean Corpuscular Hemoglobin Concent 36.5% (32.0-37.0) 36.3% (32.0-37.0) Red Cell Distribution Width 16.5% (12.3-15.4) 16.6% (12.3-15.4) Platelet Count 131bil/L (150-400) 119bil/L (150-400) Neutrophils (%) (Auto) 60% (40-74) 78% (40-74) Lymphocytes (%) (Auto) 18% (14-46) 14% (14-46) Monocytes (%) (Auto) 16% (4-12) 2% (4-12) Eosinophils (%) (Auto) 2% (0-5) 0% (0-5) Basophils (%) (Auto) 1% (0-3) 0% (0-3) Band Neutrophils % 2% (1-5) 6% (1-5) Myelocytes % 1% (0-0) Sodium Level 123mEq/L (134-144) 124mEq/L (134-144) Potassium Level 4.0mEq/L (3.5-5.2) 3.4mEq/L (3.5-5.2) Chloride Level 85mEq/L (97-108) 88mEq/L (97-108) Carbon Dioxide Level 20mmol/L (18-29) 18mmol/L (18-29) Blood Urea Nitrogen 17mg/dL (8-27) 19mg/dL (8-27) Creatinine 1.08mg/dL (0.57-1.00) 1.76mg/dL (0.57-1.00) Estimat Glomerular Filtration Rate 73mL/min (>59) 42mL/min (>59) Glucose Level 60mg/dL (60-99) 67mg/dL (60-99) Calcium Level 9.6mg/dL (8.5-10.1) 7.2mg/dL (8.5-10.1) Total Bilirubin 8.8mg/dL (0.0-1.2) 7.4mg/dL (0.0-1.2) Aspartate Amino Transf (AST/SGOT) 228U/L (0-50) 229U/L (0-50) Alanine Aminotransferase (ALT/SGPT) 152U/L (0-32) 102U/L (0-32) Alkaline Phosphatase 262U/L (25-165) 226U/L (25-165) Total Protein 5.4g/dL (6.4-8.4) 4.5g/dL (6.4-8.4) Albumin 2.7g/dL (3.4-5.0) 2.2g/dL (3.4-5.0) Ammonia 95ug/dL (18-53) Pro-B-Type Natriuretic Peptide 2668pg/mL (0-287) Prothrombin Time 22.7sec (8.1-12.5) Prothromb Time International Ratio 2.09ratio Lactic Acid Level 2.9mmol/L (0.4-2.0) Result Diagram: 08/17/16 1600 08/17/16 1304 X-Rays, CTs and MRIs CT ABDOMEN AND PELVIS Exam date: 08/14/2016 Conclusion: Marked fatty infiltration of the liver. TIPS. Gallstones. 5.5 cm left ovarian cyst. Nonemergent ultrasound is recommended to exclude malignant features. Radiologist: Guero Sherwood MD PROCEDURE: US ABDOMEN, LIMITED ([id number]) INDICATIONS: abd pain, gallstones on CT FINDINGS: The liver demonstrates steatosis as well but overall cirrhotic appearance. The gallbladder demonstrates mild wall thickening as well as multiple nonmobile areas of increased echogenicity. Common bile duct is well common hepatic duct are not well-visualized secondary to patient body habitus. IMPRESSION: 1. Nonmobile areas of increased echogenicity within the gallbladder as well as color wall thickening. Findings are suspicious for adherent stones or sludge with likely superimposed cholecystitis. Dictated by: Sherine Biswas M.D. on 08/15/2016 at 15:36 Approved by: Sherine Biswas M.D. on 08/15/2016 at 15:36 PROCEDURE: X-RAY CHEST ONE VIEW, PORTABLE ([id number]) INDICATIONS: SOB FINDINGS: Surgical changes and devices: None. Lungs and pleura: No pleural effusions or pneumothorax. Patchy consolidative and groundglass opacities involving the right upper lower lobes, left lung diffusely. Mediastinum: Mediastinal contours appear normal. Heart size is normal. Bones and chest wall: No suspicious bony lesions. Overlying soft tissues appear unremarkable. IMPRESSION: Diffuse, bilateral ill-defined and groundglass opacities suggesting multifocal pneumonia although cannot exclude superimposed pulmonary edema. Please correlate clinically Dictated by: Haseeb Floyd M.D. on 08/17/2016 at 10:26 Approved by: Haseeb Floyd M.D. on 08/17/2016 at 10:26 Additional Diagnostics BLOOD GAS ARTERIAL DateTimeAnalyzed 11:17:00 -_ pH ____7.290 - 7.350 7.450 pCO2 ___37.9__ -mmHg 35.0 45.0 pO2 ___67.7__ -mmHg 69.0 116 HCO3- ___17.7__ -mmol/L 22.0 26.0 ABE ___-7.8__ -mmol/L -2.0 2.0 tHb ___10.9__ -g/dL O2Hb ___89.6__ -% COHb ____0.8__ -% MetHb ____0.9__ -% sO2 ___91.2__ -% FIO2 ___60.0__ -% Drawn By jmw - Date/Time Notified____ 11:21:00 -_ Liter_Flow ___10.0__ -L/min Oxygen Device 1 __OXYMASK - Notified Whom _DR JESUS - B 753 -mmHg tO2 ___13.8__ -Vol% Paras test _Positive - Current ABG at 7:45 PM today shows pH 7.018,pCO2 63.8,pO2 41.7 with HCO3 16.4. Assessment & Plan Patient is a 65-year-old female with alcoholic induced liver cirrhosis s/p TIPS , hepatic encephalopathy and hypertension admitted for abdominal pain, hyperammonemia, hyponatremia, hyperbilirubinemia and transaminitis. 1. Acute hypoxic respiratory failure. The patient will be supported oxygen up to and including BiPAP. She will also be treated for possible pneumonia as evidenced on x-ray. She is DNR/DNI. 2. Pneumonia, possible aspiration. The patient was placed on broad-spectrum antibiotic pulmonary no change status for now. We will obtain cultures and sputum data. Support as outlined above 3. Possible rectal bleeding. POA. The patient has hematocrit of 27 at this time we will follow her hematocrit and clinical status closely. Blood product support as needed. We will check ProTime. 4. Probable hypovolemia. We will aggressively fluid resuscitate this patient who is hypotensive. We will reserve pressors for evidence of persistent hypotension in spite of adequate fluid resuscitation. 5. Hyponatremia. This likely is multifactorial both chronic and also has a manifestation of her acute Depletion. Crystalloid resuscitation and follow 6. Known alcohol-induced cirrhosis with TIPS and varices. Mild score of 20. 7. Alcoholism. Follow clinically. CIWA as indicated. 8. Acute hepatic dysfunction, alcohol-induced hepatitis. Support clinically. 9. Acute kidney injury. Likely manifestation of sepsis and hypovolemia. Fluid resuscitate and follow renal indices closely. Avoid nephrotoxins. 8. She was to resuscitate, confirmed today. She is also DO NOT INTUBATE. Assessment and Plan: # Increasing respiratory distress with hypoxia and hypercapnea Will initiate Bipap. Pt is DNR/DNI as noted above with ESLD. Check BMP,HCT,serial troponin ,lactic acid Continue with Levophed Intiate iv Lasix for pulmonary edema. Check stat CXR. Results of recent echocardiogram reviewed. Prognosis currently is poor. GI Prophylaxis: Not indicated VTE Prophylaxis: Sub-Q Heparin (Unfractionated) VTE Mechanical Devices: Intermittant Pneumatic CD Resuscitation Status: CPR: Attempt Resuscitation Time spent Critical Care time= 40 minutes Génesis Ervin MD Aug 17, 2016 20:04
--- NOTE | 2016-08-17 20:45 | DRSVH ---
PROCEDURE: X-RAY CHEST ONE VIEW, PORTABLE ([id number]) INDICATIONS: hypoxia TECHNIQUE: One view of the chest was acquired. COMPARISON: [facility], CR, XR CHEST 1VW (PORTABLE), 08/17/2016, 13:49. FINDINGS: Surgical changes and devices: Left PICC line with the tip unchanged, potentially within persistent le ft SVC although recommend clinical correlation. Presumed TIPS Lungs and pleura: Worsening diffuse bilateral consolidation. No definite pleural effusion or pneumoth orax Mediastinum: Mediastinal contours appear normal. Heart size is normal. Bones and chest wall: No suspicious bony lesions. Overlying soft tissues appear unremarkable. IMPRESSION: Worsening diffuse consolidative or groundglass opacities in keeping with multifocal aspiration/atelec tasis, possibly superimposed pneumonia. Dictated by: Haseeb Floyd M.D. on 08/17/2016 at 20:43 Approved by: Haseeb Floyd M.D. on 08/17/2016 at 20:43
[2016-08-17 20:58] LABS: TROPONIN T 0.013 ug/L (0.0-0.011)
[2016-08-17] MEDS ORDERED: Calcium GLUCO 10% (Gm) Inj 1 GM in Dextrose 5% 50 ML IV ONE (22:25)
[2016-08-17] MEDS ORDERED: Lactulose 20 Gm/30 mL 30 mL Syrup RECTAL SCH (22:30)
--- NOTE | 2016-08-17 23:59 | NUR ---
Time of At start of shift: NS 150ml/hour, Norepinephrine 0.01mcg/kg/min, Vasopressin 0.03units/minute, ABX infusing. Patent triple PICC to right arm and 22G in patient's right foot. SpO2 unobtainable. High flow oxygen at 50LPM at 100%FiO2, RT called and upped to Max of 70LPM. Pt restrained to prevent pulling off high flow oxygen like what had happened prior in the day. Pt producing medium amount of frothy orange sputum. paged about patient's declining status and comprised state. Stat ABG ordered and physician at bedside to evaluate patient in person. Stat labs and blood cultures ordered. Norepinephrine titrated up to maintain MAP. K Stevo ordered and hung along with Lasix 40mg IVP with little effect. Critical Labs came back with Lactate 4.5 and calcium of 6.1, 1 Gram of Calcium gluconate ordered along with order to halt further NS fluid administration. Pt started on BIPAP at 20/10 100% FiO2. Restraints remained on with Sitter at bedside for safety. Pt's SpO2 improved dramatically. Pt continues with frothy sputum. RT called to suction patient. BIPAP mask needed to be changed and patient temporarily placed on high flow O2 until mask could be swapped out. Patient's SpO2 dramatically decreased, Pt became cold, blue/pale. Pt immediately began showing changes in tele from her baseline of SR with 1st Degree AVB. paged to see patient. Pt having agonal breaths and minimal if any cardiac electrical activity. Pt pulseless and heart beat unable to be auscultated. Time of called at 2233. Call placed to next of kin; TRINIDAD Grace, call placed to [facility], End of life forms completed. All belongings sent home with trinidad Grace.
[2016-08-20] MEDS ORDERED: Vancomycin Serum Trough XX ONE (12:30)
--- NOTE | 2016-08-21 14:52 | PCM.DC.MED ---
Discharge Summary Date of Service Aug 17, 2016 Dates of Hospitalization Date of Hospital Admission Aug 15, 2016 at 01:09 Date of Discharge: Aug 17, 2016 Providers: Admitting Physician: Danie Bagley MD Primary Care Physician: Nita Sawyer MD Attending Physician: Danie Bagley MD Diagnosis at Time of Discharge Diagnosis at Time of Discharge 1. Expiration 2. Acute hypoxic respiratory failure 3. Probable aspiration pneumonia. 4. Probable sepsis with shock 5. Hepatic encephalopathy 6. 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 7. Probable upper GI bleed with acute blood loss anemia 8. Abdominal pain of unclear etiology upon presentation 9. History of TIPS procedure, Consultations GI, Dr. Fatima Gen. surgery, Dr. Leary Procedures XRay, CTs & MRIs CT ABDOMEN AND PELVIS Exam date: 08/14/2016 Conclusion: Marked fatty infiltration of the liver. TIPS. Gallstones. 5.5 cm left ovarian cyst. Nonemergent ultrasound is recommended to exclude malignant features. Radiologist: Guero Sherwood MD PROCEDURE: US ABDOMEN, LIMITED ([id number]) INDICATIONS: abd pain, gallstones on CT FINDINGS: The liver demonstrates steatosis as well but overall cirrhotic appearance. The gallbladder demonstrates mild wall thickening as well as multiple nonmobile areas of increased echogenicity. Common bile duct is well common hepatic duct are not well-visualized secondary to patient body habitus. IMPRESSION: 1. Nonmobile areas of increased echogenicity within the gallbladder as well as color wall thickening. Findings are suspicious for adherent stones or sludge with likely superimposed cholecystitis. Dictated by: Sherine Biswas M.D. on 08/15/2016 at 15:36 Approved by: Sherine Biswas M.D. on 08/15/2016 at 15:36 PROCEDURE: X-RAY CHEST ONE VIEW, PORTABLE ([id number]) INDICATIONS: SOB FINDINGS: Surgical changes and devices: None. Lungs and pleura: No pleural effusions or pneumothorax. Patchy consolidative and groundglass opacities involving the right upper lower lobes, left lung diffusely. Mediastinum: Mediastinal contours appear normal. Heart size is normal. Bones and chest wall: No suspicious bony lesions. Overlying soft tissues appear unremarkable. IMPRESSION: Diffuse, bilateral ill-defined and groundglass opacities suggesting multifocal pneumonia although cannot exclude superimposed pulmonary edema. Please correlate clinically Dictated by: Haseeb Floyd M.D. on 08/17/2016 at 10:26 Approved by: Haseeb Floyd M.D. on 08/17/2016 at 10:26 Cardiac Echo Impression Normal ventricular function and structure, hyperdynamic. EF was 70%. Other Diagnostics BLOOD GAS ARTERIAL DateTimeAnalyzed 11:17:00 -_ pH ____7.290 - 7.350 7.450 pCO2 ___37.9__ -mmHg 35.0 45.0 pO2 ___67.7__ -mmHg 69.0 116 HCO3- ___17.7__ -mmol/L 22.0 26.0 ABE ___-7.8__ -mmol/L -2.0 2.0 tHb ___10.9__ -g/dL O2Hb ___89.6__ -% COHb ____0.8__ -% MetHb ____0.9__ -% sO2 ___91.2__ -% FIO2 ___60.0__ -% Drawn By jmw - Date/Time Notified____ 11:21:00 -_ Liter_Flow ___10.0__ -L/min Oxygen Device 1 __OXYMASK - Notified Whom _DR JESUS - B 753 -mmHg tO2 ___13.8__ -Vol% Paras test _Positive - Current ABG at 7:45 PM today shows pH 7.018,pCO2 63.8,pO2 41.7 with HCO3 16.4. Brief History Patient is a 65-year-old female with alcoholic induced liver cirrhosis s/p TIPS , hepatic encephalopathy and hypertension presenting with abdominal pain. Patient reports the onset of lower abdominal pain about one week ago. She describes the pain as an intermittent sharp pain that started without any inciting event. She states the pain is worse when sitting upright and has tried ibuprofen without any improvement. Patient states the pain was worse today, which prompted her to summon EMS to be brought to [facility] ED for further evaluation. The patient also endorses daily nausea and emesis in the morning over about the past month. She also reports a dry cough over the same time period. Patient reports being constipated earlier in the week with subsequent diarrhea over the past two days. She also reports bleeding hemorrhoids with reported hematochezia about 2 days ago, which has since resolved. She also reports watery eyes with resulting crusting in the morning. This has been bothering her and is another reason she decided to come to the ED. She had been followed by out of school hours care worker, Dr. Mack, in the past and was on furosemide, spironolactone and lactulose for her liver-related issues; however, she reports that she has not been compliant with her medications over about the past six months. She states she is unable to follow up with a water reuse program manager or out of school hours care worker since transportation is an issue. She admits to drinking 3 to 4 vodka shots per week. Her last alcoholic drink was about four days ago. Patient denies history of DTs or hallucinations with alcohol cessation. In the ED, vitals: 36.8, HR 103, RR 18 satting 100% on room air, BP 135/62. Notable labs: Na 128, Cl 83, AST 246, ALT 176, alk phos 292, T bili 10.6, ammonia 159. CT abdomen and pelvis reads marked fatty infiltration of the liver , gallstones and 5.5cm left ovarian cyst. Hospital Course Patient is a 65-year-old female with alcoholic induced liver cirrhosis s/p TIPS , hepatic encephalopathy and hypertension admitted for abdominal pain, hyperammonemia, hyponatremia, hyperbilirubinemia and transaminitis. 1. Acute hypoxic respiratory failure. The patient will be supported oxygen up to and including BiPAP. She will also be treated for possible pneumonia as evidenced on x-ray. She is DNR/DNI. 2. Pneumonia, possible aspiration. The patient was placed on broad-spectrum antibiotic pulmonary no change status for now. We will obtain cultures and sputum data. Support as outlined above 3. Possible rectal bleeding. POA. The patient has hematocrit of 27 at this time we will follow her hematocrit and clinical status closely. Blood product support as needed. We will check ProTime. 4. Probable hypovolemia. We will aggressively fluid resuscitate this patient who is hypotensive. We will reserve pressors for evidence of persistent hypotension in spite of adequate fluid resuscitation. 5. Hyponatremia. This likely is multifactorial both chronic and also has a manifestation of her acute Depletion. Crystalloid resuscitation and follow 6. Known alcohol-induced cirrhosis with TIPS and varices. Mild score of 20. 7. Alcoholism. Follow clinically. CIWA as indicated. 8. Acute hepatic dysfunction, alcohol-induced hepatitis. Support clinically. 9. Acute kidney injury. Likely manifestation of sepsis and hypovolemia. Fluid resuscitate and follow renal indices closely. Avoid nephrotoxins. 8. She was to resuscitate, confirmed today. She is also DO NOT INTUBATE. Slow course. The patient was admitted for abdominal pain. Initial CT scan indicated gallbladder stones and no evidence of cholecystitis. The patient was treated symptomatically. She was also found to have evidence of sepsis and shock and was covered with empiric antibiotics and fluid resuscitated. She also had altered mental status consistent with hepatic encephalopathy. The patient has a known history of alcohol-induced cirrhosis and a meld score of 20 as well as a history of TIPS. The patient developed evidence of acute respiratory failure, hypoxic and chest x-ray indicated possible aspiration pneumonia. She was treated accordingly. The patient then developed evidence of rectal bleeding. Consideration was made for endoscopy however the patient is felt to be clinically unstable with her acute hypoxic respiratory failure. Ultimately she was transferred to the second floor on the . At that time she required BiPAP for support and fluid resuscitation. Level care was further discussed with her at that point she elected not to be intubated or resuscitated. In spite of all the other medical support measures she ion the evening the . Exam Vital Signs (Last) Date Time Temp Pulse Resp B/P Pulse Ox O2 Delivery O2 Flow Rate FiO2 08/17/16 20:34 CPAP/BIPAP 08/17/16 20:34 36.1 98 24 100/71 88 100 08/17/16 17:00 60 Exam Prior to expiration patient was anxious and incoherent She was able stated that she wanted to be made comfortable and not intubated. She had icteric sclera. Neck supple Lungs revealed a few scattered wheezing and rhonchi and increased rate and effort Heart was regular Abdomen is distended but nontender. Extremities are normal for no edema and good pedal pulses, hyperdynamic. She did have jaundice Test 08/14/16 22:06 08/15/16 01:15 08/15/16 06:15 08/15/16 15:00 Metamyelocytes % 1% (0-0) Nucleated Red Blood Cells 1/100 WBC (0-24) Hold Purple Top Tube Received (Received) Hold Blue Top Tube Received (Received) Magnesium Level 1.5mg/dL (1.6-2.6) Lipase 20U/L (13-60) Hold [place] Top Tube Received (Received) Hold Mack Top Tube Received (Received) Alcohol, Quantitative < 10mg/dL (0-10) Urine Color [place] (YELLOW) Urine Appearance Cloudy (CLEAR,HAZY) Urine pH 6.0 (5.0-8.0) Urine Specific [place] 1.033 (1.003-1.035) Urine Protein Negativemg/dL (NEG,TRACE) Urine Glucose (UA) Negativemg/dL (NEGATIVE) Urine Ketones Negativemg/dL (NEGATIVE) Urine Occult Blood Moderate (NEGATIVE) Urine Nitrite Negative (NEGATIVE) Urine Bilirubin Moderate (NEGATIVE) Urine Ictotest Positive (Negative) Urine Urobilinogen 1.0mg/dL (NORMAL) Urine Leukocyte Esterase Trace (NEGATIVE) Urine RBC 0-2/hpf (0-2) Urine WBC 6-10/hpf (0-5) Urine Epithelial Cells Many/hpf (NONE-MOD) Urine Crystals None seen (NONE SEEN) Urine Bacteria Many/hpf (NONE-FEW) Urine Hyaline Casts None/lpf (NONE) Urine Granular Casts None seen (NONE SEEN) Urine Waxy Casts None seen (NONE SEEN) Urine Red Blood Cell Casts None seen (NONE SEEN) Urine White Blood Cell Casts None seen (NONE SEEN) Urine Mucus None seen (None Seen) Urine Trichomonas None seen (NONE SEEN) Urine Yeast None (NONE SEEN) Urine Culture Reflexed Indicated Hematology Comments Rbc Direct Bilirubin 7.2mg/dL (0.0-0.3) Hepatitis A IgM Antibody Negative (Negative) Hepatitis B Surface Antigen Negative (Negative) Hepatitis B Core IgM Antibody Negative (Negative) Hepatitis C Antibody <0.1s/co ratio (0.0-0.9) Hepatitis C Comment Comment (.) Test 08/16/16 06:10 08/17/16 12:50 08/17/16 13:04 08/17/16 16:00 Myelocytes % 1% (0-0) White Blood Count 11.6th/mm3 (3.8-10.1) Red Blood Count 2.91mil/mm3 (3.90-5.20) Mean Corpuscular Volume 95.5fL (81-100) Mean Corpuscular Hemoglobin 34.7pg (27.0-35.0) Mean Corpuscular Hemoglobin Concent 36.3% (32.0-37.0) Red Cell Distribution Width 16.6% (12.3-15.4) Platelet Count 119bil/L (150-400) Neutrophils (%) (Auto) 78% (40-74) Lymphocytes (%) (Auto) 14% (14-46) Monocytes (%) (Auto) 2% (4-12) Eosinophils (%) (Auto) 0% (0-5) Basophils (%) (Auto) 0% (0-3) Band Neutrophils % 6% (1-5) Total Bilirubin 7.4mg/dL (0.0-1.2) Aspartate Amino Transf (AST/SGOT) 229U/L (0-50) Alanine Aminotransferase (ALT/SGPT) 102U/L (0-32) Alkaline Phosphatase 226U/L (25-165) Pro-B-Type Natriuretic Peptide 2668pg/mL (0-287) Total Protein 4.5g/dL (6.4-8.4) Albumin 2.2g/dL (3.4-5.0) Procalcitonin 1.48ng/mL (See Comment) Prothrombin Time 22.7sec (8.1-12.5) Prothromb Time International Ratio 2.09ratio Test 08/17/16 20:15 Hemoglobin 11.1g/dL (12.0-15.6) Hematocrit 31.3% (35.0-46.0) Hold Urine Received (Received) Sodium Level 124mEq/L (134-144) Potassium Level 3.3mEq/L (3.5-5.2) Chloride Level 91mEq/L (97-108) Carbon Dioxide Level 14mmol/L (18-29) Blood Urea Nitrogen 18mg/dL (8-27) Creatinine 1.33mg/dL (0.57-1.00) Estimat Glomerular Filtration Rate 58mL/min (>59) Glucose Level 151mg/dL (60-99) Lactic Acid Level 4.5mmol/L (0.4-2.0) Calcium Level 6.1mg/dL (8.5-10.1) Ammonia 128ug/dL (18-53) Troponin T 0.013ug/L (0.0-0.011) Discharge Medications Discharge Medications Famotidine (Famotidine) 20 Mg Tablet 20 MG PO BID (Reported) Furosemide (Furosemide) 40 Mg Tablet 40 MG PO BID (Reported) Spironolactone (Spironolactone) 50 Mg Tablet 25 MG PO DAILY (Reported) Followup Plan Disposition: Time spent 40 minutes Paras Low MD Aug 21, 2016 14:51
== END 2016-08-17 22:34 | disposition expired | DRG 251 ==
LOC: EDUNIT# 21:30 → EDBD 21:30 → SED 21:30 → MPC 08-15 01:09 → PCC 08-17 11:47 → CCU 08-17 14:27
PROVIDERS: ADMIT Internal Medicine; ATTEND Internal Medicine
PROC: 4A033R1 Measurement of Arterial Saturation, Peripheral, Percutaneous Approach (ICD-10-PCS; principal; 2016-08-17)
PROC: 5A09357 Assistance with Respiratory Ventilation, Less than 24 Consecutive Hours, Continuous Positive Airway Pressure (ICD-10-PCS; 2016-08-17)
DX: R10.30 Lower abdominal pain, unspecified (principal); A41.9 Sepsis, unspecified organism; J96.01 Acute respiratory failure with hypoxia; J69.0 Pneumonitis due to inhalation of food and vomit; K70.30 Alcoholic cirrhosis of liver without ascites; N17.9 Acute kidney failure, unspecified; E87.2 Acidosis; D62 Acute posthemorrhagic anemia; K70.40 Alcoholic hepatic failure without coma; E72.20 Disorder of urea cycle metabolism, unspecified; E87.1 Hypo-osmolality and hyponatremia; F10.20 Alcohol dependence, uncomplicated; E87.6 Hypokalemia; L30.4 Erythema intertrigo; F17.200 Nicotine dependence, unspecified, uncomplicated; K62.5 Hemorrhage of anus and rectum; Z91.19 Patient's noncompliance with other medical treatment and regimen; K76.6 Portal hypertension; Z66 Do not resuscitate